=== PATIENT | female | born 1950 | race Caucasian/White ===

== ENCOUNTER 2019-03-08 07:27 | Day surgery (SDC) | payer MEDICARE, OTHER, SELFPAY ==
[2019-03-07 10:46] VITALS: BMI 37.1
[2019-03-08 08:42] VITALS: BP 135/88; PULSE 74; RESP 18; TEMP 36.2; O2SAT 99
[2019-03-08] MEDS: sodium chloride 0.9% 1,000 ML 30 ML (08:58)
--- NOTE | 2019-03-08 09:19 | PM.HPUD ---
H&P update H&P Update: DATE OF SURGERY/PROCEDURE: 03/08/19 DATE H&P PERFORMED: 03/04/19 H&P UPDATE INFORMATION: H&P completed within last 30 days and No changes to prior documentation PREOP DIAGNOSIS: Persistent GERD with history of obesity PLANNED PROCEDURE: Operation Date: 03/08/19 09:15 Proposed Procedures p EGD(Not Applicable) - David Avila MD Full H&P Perinent History: Medical/Surgical History: Medical History (Updated 03/04/19 @ 11:17 by David Avila MD) Chronic constipation (Acute) Depression with anxiety (Acute) Hyperlipidemia (Acute) Hypertension (Acute) Obesity (Acute) Family History: Family History (Updated 02/28/19 @ 14:55 by Chelsea Blancas RN) Father Diabetes Hypertension Mother Hypertension Dementia Family/Other Cancer colon Dementia aunt Denies family history of Anesthesia complication Bleeding disorder Social History: Social History Smoking and tobacco status: former smoker Quit status (tobacco): has quit using tobacco Second hand smoke exposure: No Alcohol intake: never Desire information about alcohol rehabilitation?: No Desire information about substance/drug rehabilitation?: No Adopted: No Caregiver/support person: Yes Lives independently: Yes Household members: spouse Housing: House Marital status: Highest education level completed: High School Graduate service: No Current occupational status: retired Current occupational exposures/hazards: No Pets and animals: Yes History of recent travel: No Leisure activites: exercise and games Sexually active: No Current gender identity: Female Ercia/Scientologist: None Financial difficulty paying for basics: Not Very Hard
--- NOTE | 2019-03-08 09:25 | ANES.PREANES ---
Pre-Anesthetic Assessment Pre-Anesthetic Assessment: Height/Weight: Height 1.68 m Weight 104.326 kg Temp Pulse Resp BP Pulse Ox 97.1 F L 74 18 135/88 99 03/08/19 08:42 03/08/19 08:42 03/08/19 08:42 03/08/19 08:42 03/08/19 08:42 Preop Diagnosis: Persistent GERD with history of obesity Proposed Procedure: Operation Date: 03/08/19 09:15 Proposed Procedures p EGD(Not Applicable) - David Avila MD Last intake: Intake Last Liquid Date 03/07/19 Last Liquid Time 23:00 Last Solid Date 03/07/19 Last Solid Time 23:00 Social: Social History: Alcohol (occasional) Exam: Pre-Anes Outpt Exam: alert, oriented x 3, clear to auscultation bilaterally and regular rate & rhythm Airway: Cervical ROM: WNL MP: 2 Dentition: Full History/ROS: Other Pulmonary: Pulmonary: None reported CV/HEM: CV/HEM: Angina (Stable), Arrythmia, CAD and HTN Comments: stentsX1- 2014 Dr. Serrato ([facility]) saw recently and everything checked out : : None reported Hepatic: Hepatic: None reported GI: GI: GERD (controlled) Metabolic: Metabolic: Hyperlipidemia and Thyroid (hypo) Musc/skel: Musc/skel: Lower Back Pain and OA/DJD Neuropsych: Neuropsych: Anxiety, Depression and TIA (2014 memory loss) Anesthetic Plan: ASA status: III Anesthesia: MAC Risk of > 500 ml blood loss (7ml/kg in children): No PFSH Anesthesia PFSH: Medical History (Updated 03/04/19 @ 11:17 by David Avila MD) Chronic constipation (Acute) Depression with anxiety (Acute) Hyperlipidemia (Acute) Hypertension (Acute) Obesity (Acute) Surgical History (Updated 03/04/19 @ 11:17 by David Avila MD) History of bilateral breast reduction surgery (Acute) History of coronary artery stent placement (Acute) History of lumbar laminectomy for spinal cord decompression (Acute) History of total knee replacement (Acute) Social History Smoking and tobacco status: former smoker Quit status (tobacco): has quit using tobacco Second hand smoke exposure: No Alcohol intake: never Desire information about alcohol rehabilitation?: No Desire information about substance/drug rehabilitation?: No Adopted: No Caregiver/support person: Yes Lives independently: Yes Household members: spouse Housing: House Marital status: Highest education level completed: High School Graduate service: No Current occupational status: retired Current occupational exposures/hazards: No Pets and animals: Yes History of recent travel: No Leisure activites: exercise and games Sexually active: No Current gender identity: Female Erica/Zoroastrianism: None Financial difficulty paying for basics: Not Very Hard Data Anesthesia Cardiac Studies: No Data to Display
[2019-03-08 10:10] VITALS: BP 130/62; PULSE 71; RESP 18; TEMP 36.1; O2SAT 99
--- NOTE | 2019-03-08 10:13 | ANE.PACU ---
 Inpatient post-anesthesia follow up: Airway intact: Yes Vital signs: Temperature 97.1 F Pulse Rate [Right Radial] 74 Respiratory Rate 18 Blood Pressure [Le ft Arm] 135/88 Pulse Oximetry 99 Oxygen Delivery Me thod Oxygen Flow Rate Fraction of Inspir ed Oxygen Hydration adequate: Yes Nausea and vomiting: No Pain level: 1 Mental status: Baseline
[2019-03-08 10:24] VITALS: BP 116/64; PULSE 65; RESP 18; O2SAT 99
[2019-03-09 06:57] LABS: H. Pylori / CLO Test Negative
== END 2019-03-08 10:38 | disposition home or self-care (01) ==
PROVIDERS: Family Provider Registered Nurse; PCP Registered Nurse; Visit Provider Surgery
PROC: 0DJ08ZZ Inspection of Upper Intestinal Tract, Via Natural or Artificial Opening Endoscopic (ICD-10-PCS; CPT 43235; principal; 2019-03-08 09:15)
DX: K21.9 Gastro-esophageal reflux disease without esophagitis (principal); E66.9 Obesity, unspecified; K29.70 Gastritis, unspecified, without bleeding; E78.5 Hyperlipidemia, unspecified; I10 Essential (primary) hypertension; Z80.0 Family history of malignant neoplasm of digestive organs; Z87.891 Personal history of nicotine dependence
CPT/HCPCS: 12345; 43239; 87077; 96365; J2704; J7030

== ENCOUNTER 2019-04-18 07:44 | Outpatient (CLI) | payer MEDICARE, OTHER, SELFPAY ==
--- NOTE | 2019-04-18 07:55 | US_ITS ---
WS: [id number] INDICATION: Right groin pain TECHNIQUE: Ultrasound right groin patient directed. FINDINGS: Ultrasound right groin patient directed area of concern. No evidence of drainable fluid col lection. There is a 1.2 x 0.5 x 1.2 cm slightly prominent lymph node right groin. No other cystic or solid mass. No other abnormalities. IMPRESSION: Slightly prominent lymph node right groin with preserved fatty hilum. No other findings in right groin.
== END 2019-04-18 07:45 | disposition home or self-care (01) ==
LOC: US 07:46
PROVIDERS: Family Provider Registered Nurse; PCP Registered Nurse; Visit Provider Registered Nurse
DX: R10.31 Right lower quadrant pain (principal)
CPT/HCPCS: 76882

== ENCOUNTER 2019-09-18 15:54 | Outpatient (CLI) | payer MEDICARE, OTHER, SELFPAY ==
[2019-09-18 16:42] LABS: Basophils # 0.1 10^3/uL (0.0-0.1); Basophils % 0.7 %; Eosinophils # 0.2 10^3/uL (0.0-0.8); Eosinophils % 1.8 %; Hematocrit 42.9 % (37.0-47.0); Hemoglobin 14.3 g/dL (11.5-15.3); Lymphocytes # 1.3 10^3/uL (0.8-4.8); Lymphocytes % 15.6 %; Mean Corpuscular HGB Conc 33.3 g/dL (30.0-36.0); Mean Corpuscular Hemoglobin 30.2 pg (28.0-34.0); Mean Corpuscular Volume 90.5 fL (81-99); Mean Platelet Volume 9.3 fL (7.4-10.4); Monocytes # 0.6 10^3/uL (0.2-0.9); Monocytes % 7.1 %; Neutrophils # 6.38 10^3/uL (1.8-7.7); Neutrophils % 74.6 %; Nucleated Red Blood Cells % 0 %; Platelet Count 292 10^3/cmm (130-400); Red Blood Count 4.74 10^6/uL (4.1-5.3); Red Cell Distribution Width 12.2 % (12.1-15.1); White Blood Count 8.6 10^3/uL (4.0-10.0)
[2019-09-18 16:48] LABS: INR 1.02 (0.8-1.2)
[2019-09-18 16:51] LABS: Alanine Aminotransferase 22 U/L (0-33); Albumin Level 4.5 g/dL (3.5-5.2); Alkaline Phosphatase 123 IU/L (35-105); Aspartate Amino Transferase 19 U/L (0-32); Globulin 2.7 g/dL (1.3-4.6); Total Bilirubin 0.4 mg/dL (0.15-1.2); Total Protein 7.2 g/dL (6.6-8.7)
[2019-09-18 17:15] LABS: Alanine Aminotransferase 21 U/L (0-33); Albumin Level 4.5 g/dL (3.5-5.2); Alkaline Phosphatase 122 IU/L (35-105); Anion Gap 15.4 (5-19); Aspartate Amino Transferase 19 U/L (0-32); Blood Urea Nitrogen 12 mg/dL (8-23); Carbon Dioxide 26 mmol/L (22-29); Chloride 97 mmol/L (98-107); Ferritin 58 ng/mL (15-150); Globulin 2.8 g/dL (1.3-4.6); Glomerular Filtration Rate 62.5 mL/min (90-130); Glucose 126 mg/dL (65-115); Iron 81 ug/dL (37-145); Osmolality Calculated 276 mOsm/kg (285-295); Percent Saturation 24.1 % (20-50); Phosphorus 3.7 mg/dL (2.5-4.5); Potassium 4.4 mmol/L (3.5-5.1); Sodium 134 mmol/L (136-145); Thyroid Stimulating Hormone 0.25 uIU/mL (0.27-4.20); Total Bilirubin 0.4 mg/dL (0.15-1.2); Total Iron Binding Capacity 335 mcg/dl; Total Protein 7.3 g/dL (6.6-8.7); Unsaturated Iron Binding 254 ug/dL (112-347); Vitamin B12 1313 pg/mL (232-1245)
[2019-09-18 17:16] LABS: Calcium 9.3 mg/dL (8.5-10.5); Parathyroid Hormone 38.6 pg/mL (15-65)
[2019-09-18 19:01] LABS: Estmated Average Glucose 134; Hemoglobin A1C 6.3 % (4.0-6.0)
[2019-09-18 20:53] LABS: Chol HDL Ratio 2.12 mg/dL (0.0-4.40); Cholesterol 189 mg/dL (0-200); HDL Cholesterol 89 mg/dL (60-100); LDL Cholesterol Calculated 85 mg/dL (50-129); LDL HDL Ratio 0.96 RATIO (0.00-3.22); Triglycerides 74 mg/dL (0-150)
== END 2019-09-18 15:55 | disposition home or self-care (01) ==
LOC: LAB 15:59
PROVIDERS: PCP Registered Nurse; Visit Provider Surgery
DX: E66.9 Obesity, unspecified (principal); K29.70 Gastritis, unspecified, without bleeding; E11.9 Type 2 diabetes mellitus without complications
CPT/HCPCS: 80053; 80061; 80076; 82310; 82607; 82728; 82746; 83036; 83540; 83550; 83735; 83970; 84100; 84443; 85025; 85610

== ENCOUNTER → 2019-10-13 10:54 | Outpatient (BNVA) | payer MEDICARE, OTHER, SELFPAY | PROVIDERS: PCP Registered Nurse; Visit Provider Internal Medicine | DX: Z20.828 Contact with and (suspected) exposure to other viral communicable diseases (principal); E66.9 Obesity, unspecified | CPT/HCPCS: 87635 ==

== ENCOUNTER 2019-10-17 08:53 | Inpatient (IN) | payer MEDICARE, OTHER, SELFPAY ==
[2019-10-13 10:43] VITALS: BMI 37.1
--- NOTE | 2019-10-13 11:14 | ECG_ITS ---
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 Measurements Intervals [place] Rate: 73 P: 43 [place]: 161 QRS: -8 QRSD: 82 T: 13 QT: 353 QTc: 390 Interpretive Statements SINUS RHYTHM LOW QRS VOLTAGE IN PRECORDIAL LEADS [QRS DEFLECTION < 1.0 mV IN CHEST LEADS] No previous ECG available for comparison Electronically Signed On 10-14-2019 19:31:23 CDT by Girma Danielson M.D. [id number]
--- NOTE | 2019-10-13 11:56 | P.ANESASSM_ITS ---
Pre-Anesthetic Assessment Pre-Anesthetic Assessment: Height/Weight: Height 1.68 m Weight 104.326 kg Preop Diagnosis: Persistent GERD with history of obesity Proposed Procedure: Operation Date: 10/17/19 10:15 Proposed Procedures p Laparoscopic Gastric Sleeve w/ EGD [id number] 54555 E66.9(Not Applicable) - David Avila MD s EGD(Not Applicable) - David Avila MD Was Beta Rhoda taken within 24 hours: N/A Social: Social History: No alcohol and No tobacco Exam: Pre-Anes Outpt Exam: alert, oriented x 3, clear to auscultation bilaterally and regular rate & rhythm Airway: Submandibular: WNL Cervical ROM: WNL MP: 2 Dentition: Full Pulmonary: Pulmonary: Asthma CV/HEM: CV/HEM: HTN, [place] and Murmur : : None reported Hepatic: Hepatic: None reported GI: GI: None reported Metabolic: Metabolic: Morbid obesity Musc/skel: Musc/skel: None reported Neuropsych: Neuropsych: Anxiety Anesthetic Plan: ASA status: 3 Anesthesia: General Risk of > 500 ml blood loss (7ml/kg in children): No PFSH Anesthesia PFSH: Medical History Chronic constipation Depression with anxiety Gastritis GERD (gastroesophageal reflux disease) History of mammography, screening (~2017) History of Papanicolaou smear of cervix (~2017) Hyperlipidemia Hypertension Hypertension, benign Hyponatremia Hypothyroidism IBS (irritable bowel syndrome) Memory loss Obesity Osteoarthritis Peripheral neuropathy Surgical History History of 2 sections History of bilateral breast reduction surgery History of bladder suspension procedure History of carpal tunnel release of both wrists History of colonoscopy (~2013) History of coronary artery stent placement History of lumbar laminectomy for spinal cord decompression History of total knee replacement Family History Father Diabetes Hypertension Mother Hypertension Dementia Family/Other Cancer colon Dementia aunt Denies family history of Anesthesia complication Bleeding disorder Social History Smoking and tobacco status: former smoker Quit status (tobacco): has quit using tobacco Second hand smoke exposure: No Alcohol intake: never Desire information about alcohol rehabilitation?: No Desire information about substance/drug rehabilitation?: No Adopted: No Caregiver/support person: Yes Lives independently: Yes Household members: spouse Housing: House Marital status: Highest education level completed: High School Graduate service: No Current occupational status: retired Current occupational exposures/hazards: No Pets and animals: Yes History of recent travel: No Leisure activites: exercise and games Sexually active: No Current gender identity: Female Erica/Hoahaoism: None Financial difficulty paying for basics: Not Very Hard Data Anesthesia Cardiac Studies: No Data to Display
[2019-10-17 09:13] VITALS: BP 173/85; PULSE 78; RESP 18; TEMP 36.2; O2SAT 99
[2019-10-17] MEDS: sodium chloride 0.9% 1,000 ML 999 ML IV (09:28)
[2019-10-17] MEDS: scopolamine 1.5 Patch 1 PATCH TRANSDERMA (09:29)
[2019-10-17] MEDS: heparin 5,000 unit/mL INJ 1 mL 5000 UNIT SUBCUT (09:29)
[2019-10-17] MEDS: pantoprazole 40 mg SDV IVP (09:37)
--- NOTE | 2019-10-17 10:11 | P.ANESUD_ITS ---
Pre-Anesthetic Update Pre-Anesthetic Assessment: Date of Surgery/Procedure: 10/17/19 Preop Sandra gnosis: Persistent GERD with history of obesity Proposed Procedure: Operation Date: 10/17/19 10:55 Proposed Procedures p Laparoscopic Gastric Sleeve w/ EGD [id number] E66.9(Not Applicable) - David Avila MD s EGD(Not Applicable) - David Avila MD Changes from Pre-Anesthetic Assessment: Patient has been taking valtrex for genital herpes lesion. Surgeon informed Last Intake: Intake Last Liquid Date 10/16/19 Last Liquid Time 23:55 Last Solid Date 10/16/19 Last Solid Time 18:00 Vitals: Temperature 97.2 F L 10/17/19 09:13 Temperature Source Temporal Artery S can 10/17/19 09:13 Pulse Rate 78 10/17/19 09:13 Respiratory Rate 18 10/17/19 09:13 Blood Pressure 173/85 10/17/19 09:13 Blood Pressure Nichelle n 114 10/17/19 09:13 Pulse Oximetry 99 10/17/19 09:13 Oxygen Delivery Me thod 10/17/19 09:13 Exam: Pre-Anes Outpt Exam: alert, oriented x 3, clear to auscultation bilaterally and regular rate & rhythm Cardiac Studies: No Data to Display
--- NOTE | 2019-10-17 10:22 | PC.CHAP ---
Pastoral Care Encounter/Spiritual Assessment Type of Contact [] Declined head sawyer automatic visit [] Patient/Family/Request visit [] Outpatient visit [x] Follow-up visit [] Physician referral [] Code/Alert [] Routine visit [] Staff referral [] Actively dying [] Patient sleeping [] Family support [] [] Out of room [] Palliative care [] [] Receiving care in room [] Pre-surgical visit [] Trauma [] Long length of stay [] ICU visit [x] Other: in surgery Relational/Emotional Strength [] Patient feels connected with others/family/visitors/staff [] Distress [] Loneliness/isolation [] Abandonment Spirituality of Patient [] Person of Erica [] Attends Spiritism of their Erica [] Believes in Prayer [] Reads Bible or Druze materials [] There are Spiritual issues to be addressed Holter Scanning Technician Interventions [] Prayer [] Active listening [] Non-anxious presence [] Spiritual/emotional support [] Crisis/trauma care [] Spiritual counseling [] Bereavement support [] Provided bereavement packet [] Provided Bible/devotional materials [] Provided toy/stuffed animal, coloring book to patient or family member [] Provided Communion [] Anointing/[place] [] Salvation [] Completed spiritual assessment [] Other: Impact on Illness or Injury [] Angry [] Fearful [] Anxious [] Often cries [] Exhaustion [] Unable to work [] Unable to attend hinduism [] Unable to walk/stand [] Unable to read [] Unable to drive [] Unable to eat/drink [] Unable to sleep [] Unable to be with family [] Patient intubated [] Other: Summary in surgery Time spent with patient 5 mins
--- NOTE | 2019-10-17 11:04 | P.HPUD_ITS ---
Surgery/Procedure H&P Update DATE OF PROCEDURE: October 17, 2019 DATE H&P PERFORMED: 09/18/19 H&P UPDATE INFORMATION: I have reviewed H&P completed within last 30 days, I have examined patient prior to procedure (In the presence of female racking technician Mishel JOHNSON what appears to be that the patient has herpes at the external genitalia) and Changes to prior documentation as noted here CHANGES TO PREVIOUS DOCUMENTATION: Due to the fact that the patient is having recovering infection from herpes at her external genitalia and has been placed on antiviral medication, my concern on insertion of a Zhang catheter that can create a ascending infection moreover patient can have relatively immunocompromise status with surgical trauma and can go into acute viremia, which would require longer hospitalization and potential increase the risk of complications. I will postpone the surgery and I did discuss with the patient and her spouse and both agreed and I will defer to Ms. Arabella Winkler patient's primary care provider to clear patient prior to surgery, meanwhile will continue protein diet for another week and have the patient scheduled this coming Wednesday, hopefully by that time she will be appropriate for elective surgery. PREOP DIAGNOSIS: Persistent GERD with history of obesity PRIMARY INDICATION FOR PROCEDURE: The same PLANNED PROCEDURE: Operation Date: 10/17/19 10:55 Proposed Procedures p Laparoscopic Gastric Sleeve w/ EGD [id number] 20450 E66.9(Not Applicable) - David Avila MD s EGD(Not Applicable) - David Avila MD
--- NOTE | 2019-10-17 11:48 | PC.NURSE ---
Pts surgery cancelled. Dr Avila spoke with pt and will get her rescheduled for next week
== END 2019-10-17 14:57 | disposition home or self-care (01) | DRG 641 ==
LOC: MEDSURG 08:54
PROVIDERS: Admitting Provider Surgery; PCP Registered Nurse; Visit Provider Surgery
PROC: 0DB64Z3 Excision of Stomach, Percutaneous Endoscopic Approach, Vertical (ICD-10-PCS; CPT 43775; principal; 2019-10-17 10:45)
PROC: 0DJ08ZZ Inspection of Upper Intestinal Tract, Via Natural or Artificial Opening Endoscopic (ICD-10-PCS; CPT 43235; 2019-10-17 10:45)
DX: E66.09 Other obesity due to excess calories (principal); Z53.8 Procedure and treatment not carried out for other reasons; Z68.37 Body mass index [BMI] 37.0-37.9, adult; E88.81 Metabolic syndrome and other insulin resistance; Z79.82 Long term (current) use of aspirin; K59.09 Other constipation; F41.8 Other specified anxiety disorders; K21.9 Gastro-esophageal reflux disease without esophagitis; E78.5 Hyperlipidemia, unspecified; I10 Essential (primary) hypertension; E03.9 Hypothyroidism, unspecified; K58.9 Irritable bowel syndrome, unspecified; M19.90 Unspecified osteoarthritis, unspecified site; G62.9 Polyneuropathy, unspecified; I25.10 Atherosclerotic heart disease of native coronary artery without angina pectoris; Z95.5 Presence of coronary angioplasty implant and graft; Z98.1 Arthrodesis status; Z96.659 Presence of unspecified artificial knee joint; Z87.891 Personal history of nicotine dependence; A60.00 Herpesviral infection of urogenital system, unspecified
CPT/HCPCS: 12345; 93005; 96365; 96372; 96374; C9113; J1644; J7030

== ENCOUNTER 2019-10-23 05:35 | Inpatient (IN) | payer MEDICARE, OTHER, SELFPAY ==
[2019-10-20 14:28] VITALS: BMI 35.5
[2019-10-23] VITALS (26 sets, daily range): BP systolic 111–166; BP diastolic 53–92; PULSE 58–99; RESP 13–20; TEMP 34.6–37.5; O2SAT 95–100
--- NOTE | 2019-10-23 05:58 | W.PM.OPSFHP ---
Same Day Surgery H&P Indication for Procedure/HPI DATE OF PROCEDURE: October 23, 2019 CHIEF COMPLAINT/INDICATIONFOR SURGICAL PROCEDURE: Obesity PREOP DIAGNOSIS: Obesity PLANNED PROCEDRUE: Operation Date: 10/23/19 07:00 Proposed Procedures p Laparoscopic Gastric Sleeve w/ EGD [id number] 11809 R66.9(Not Applicable) - David Avila MD s EGD(Not Applicable) - David Avila MD This is a pleasant 69 years old female patient with history of obesity and associated multiple medical comorbidities. Patient undergone appropriate supervised medical weight loss met all the criteria for laparoscopic vertical sleeve gastrectomy. Patient was scheduled to undergo her surgery last week yet she was recovering from an episode of herpes which had involved her groin and pubic region thus the case was postponed to recover completely and she got cleared last Wednesday from Ms. Winkler her primary care provider to proceed with surgery accordingly. I elected to keep the patient on liquid protein diet and she comes today for her scheduled surgery. Patient denies any complaints. ROS All systems have been reviewed negative except as per the above or per problem list Medications/Allergies* Home Medications Medication Instructions Recorded Confirmed Type bupropion HCl 150 mg tablet,12 hr 100 mg PO BID 02/28/19 10/20/19 History sustained-release docusate sodium 100 mg capsule 100 mg PO BID 02/28/19 10/20/19 History fluticasone propionate 50 2 spray INTRANASAL DAILY ml 02/28/19 10/20/19 History mcg/actuation nasal spray,suspension levothyroxine 125 mcg capsule 125 mcg PO DAILY 02/28/19 10/20/19 History lisinopril 20 mg tablet 20 mg PO DAILY tab 02/28/19 10/20/19 History montelukast 10 mg tablet 10 mg PO DAILY 02/28/19 10/20/19 History miaahsnjqcwp-Lo-dhvv-minerals 1 tab PO DAILY tab 02/28/19 10/20/19 History aspirin [Aspir-81] 81 mg PO DAILY 03/07/19 10/20/19 History vitamin B complex 1 cap PO DAILY 03/07/19 10/20/19 History alprazolam 0.25 mg PO TID PRN 10/13/19 10/20/19 History valacyclovir 500 mg PO DAILY 10/13/19 10/20/19 History albuterol sulfate 2 puff INHALATION QID PRN 10/17/19 10/20/19 History biotin 1 mg PO DAILY 10/17/19 10/20/19 History cetirizine [Zyrtec] 10 mg PO DAILY 10/17/19 10/20/19 History magnesium citrate 500 mg PO DAILY 10/17/19 10/20/19 History pseudoephedrine HCl [Sudogest] 30 mg PO QID PRN 10/17/19 10/20/19 History nitroglycerin 0.4 mg SUBLINGUAL PRN PRN 10/20/19 10/20/19 History Allergies/Adverse Reactions Allergy/AdvReac Type Severity Reaction Status Date / Time sulfamethoxazole Allergy Mild Unknown Verified 10/23/19 06:00 [From Bactrim] trimethoprim [From Bactrim] Allergy Mild Unknown Verified 10/23/19 06:00 Lmchles-Hto-Qam Reductase Allergy Unknown Verified 10/23/19 06:00 Inhibitor topiramate [From Topamax] AdvReac ADR-Agitate Verified 10/23/19 06:00 d Pertinent History/Comorbid Conditions* Obesity and associated multiple medical comorbidities including GERD, hyperlipidemia, hypertension, hypothyroidism, irritable bowel syndrome, memory loss, and peripheral neuropathy,inaddition to depression with an anxiety. Medical History (Updated 09/18/19 @ 15:19 by David Avila MD) Chronic constipation Depression with anxiety Gastritis GERD (gastroesophageal reflux disease) History of mammography, screening (~2017) History of Papanicolaou smear of cervix (~2017) Hyperlipidemia Hypertension Hypertension, benign Hyponatremia Hypothyroidism IBS (irritable bowel syndrome) Memory loss Obesity Osteoarthritis Peripheral neuropathy Surgical History (Updated 04/06/19 @ 06:51 by David vAila MD) History of 2 sections History of bilateral breast reduction surgery History of bladder suspension procedure History of carpal tunnel release of both wrists History of colonoscopy (~2013) History of coronary artery stent placement History of lumbar laminectomy for spinal cord decompression History of total knee replacement Family History (Updated 02/28/19 @ 14:55 by Chelsea Blancas RN) Diabetes Father Dementia Mother Family/Other aunt Cancer Family/Other colon Hypertension Father Mother Denies family history of Anesthesia complication Bleeding disorder Social History Smoking and tobacco status: former smoker Quit status (tobacco): has quit using tobacco Second hand smoke exposure: No Alcohol intake: never Desire information about alcohol rehabilitation?: No Desire information about substance/drug rehabilitation?: No Adopted: No Caregiver/support person: Yes Lives independently: Yes Household members: spouse Housing: House Marital status: Highest education level completed: High School Graduate service: No Current occupational status: retired Current occupational exposures/hazards: No Pets and animals: Yes History of recent travel: No Leisure activites: exercise and games Sexually active: No Current gender identity: Female Erica/Mu-Ism: None Financial difficulty paying for basics: Not Very Hard Pertinent Exam Findings alert, oriented x 3, clear to auscultation bilaterally, regular rate & rhythm and procedure specific exam findings (Abdominal examination nontender nondistended soft no signs of peritonitis. Lower midline scar) Recommendations Other (Laparoscopic vertical sleeve gastrectomy with intraoperative EGD that would require inpatient admission) Other Plans: Informed consent per chart Coding Level of Care Code Acute Healthcare Economics Consultant for Ninoska Cabello
[2019-10-23] MEDS: sodium chloride 0.9% 1,000 ML 999 ML IV (06:05)
[2019-10-23] MEDS: scopolamine 1.5 Patch 1 PATCH TRANSDERMA (06:06)
[2019-10-23] MEDS: heparin 5,000 unit/mL INJ 1 mL 5000 UNIT SUBCUT ×2 (06:08→21:51)
[2019-10-23] MEDS: pantoprazole 40 mg SDV IVP (06:15)
--- NOTE | 2019-10-23 06:32 | P.ANESUD_ITS ---
Pre-Anesthetic Update Pre-Anesthetic Assessment: Date of Surgery/Procedure: 10/23/19 Preop Sandra gnosis: Obesity Proposed Procedure: Operation Date: 10/23/19 07:00 Proposed Procedures p Laparoscopic Gastric Sleeve w/ EGD [id number] 83990 R66.9(Not Applicable) - David Avila MD s EGD(Not Applicable) - David Avila MD Any changes to Pre-Anesthetic Assessment?: Yes Changes from Pre-Anesthetic Assessment: Cleared by primary doc for her herpes outbreak Last Intake: Intake Last Liquid Date 10/22/19 Last Liquid Time 23:55 Last Solid Date 10/22/19 Last Solid Time 19:00 Vitals: Temperature 97.5 F L 10/23/19 05:53 Temperature Source Temporal Artery S can 10/23/19 05:53 Pulse Rate 87 10/23/19 05:53 Respiratory Rate 20 H 10/23/19 05:53 Blood Pressure 130/71 10/23/19 05:53 Blood Pressure Nichelle n 90 10/23/19 05:53 Pulse Oximetry 96 10/23/19 05:53 Oxygen Delivery Me thod 10/23/19 05:53 Exam: Pre-Anes Outpt Exam: alert, oriented x 3, clear to auscultation bilaterally and regular rate & rhythm Cardiac Studies: No Data to Display
[2019-10-23] MEDS: lidocaine 2% INJ 20 mL INJECTION (07:29)
--- NOTE | 2019-10-23 08:53 | SUR.OPER ---
0752- family updated of surgical status. 0852- attempted to contact family to update of surgical status
--- NOTE | 2019-10-23 09:26 | PM.OP ---
Operative Report Date of procedure: October 23, 2019 Pre-op Diagnosis: Obesity Post-op diagnosis: same Procedure Done: Laparoscopic vertical sleeve gastrectomy and intraoperative EGD Specimens removed/disposition: Subtotal gastrectomy status post gastric sleeve sutures marked proximal Surgeon: David Avila Geological Specialist: Emily Pollack Circulating nurse Mishel Anesthesia: General (warehouse logistics manager Jerry) Estimated blood loss (mL): 10 IV fluids (mL): 1,000 Urine output (mL): 200 Complications: No immediate complication Findings: Surgical intact conduit versus laparoscopic vertical sleeve gastrectomy and intraoperative endoscopy without evidence of intraoperative leak Condition: stable Disposition: floor Brief History: This is a pleasant 69 years old female patient with history of obesity and associated multiple medical comorbidities. Patient undergone supervised medical weight loss and she met the criteria for laparoscopic vertical sleeve gastrectomy. Informed consent per chart Procedure: Patient was identified in holding area , appropriate pharmacologic DVT prophylaxis was given and preoperative IV fluid hydration, patient was then taken to the operating room where the patient was placed in supine position, intubated by anesthesia prophylactic antibiotics were given per protocol,Time-out was done verifying the patient's name/date of /planned procedure and destination after the procedure, all were in agreement. SCDs confirmed to be functioning, and beta sammi protocol was confirmed. A Zhang catheter was inserted by the circulating nurse revealing clear urine. A foot board was applied to secure the patient while the patient is placed in reversed Trendelenburg, all pressure points were padded, and the patient was appropriately secured to the table, anesthesia was asked to rotate the table back and forth to verify that the patient is appropriately secured, and that was the case. The abdomen was prepped and draped under the usual sterile technique. A 1 cm transverse incision was made with a 15 blade scalpel approximately 15 cm below the xiphoid process and 3 cm left of the midline. A 12 mm optical trocar port was placed under direct vision into the peritoneal cavity without evidence of injury to peritoneal structures upon entry. The peritoneal cavity was insufflated with carbon dioxide gas up to 15 mmHg pressure. A 45? angle laparoscopy was placed through the port into the peritoneal cavity there was no significant blood, fluid, or evidence of intra-abdominal injury under direct visualization a 5 mm trocar port was placed in the left lateral flank and 12 mm trocar port was placed in the right epigastric region and a fourth 5 mm trocar port was placed in the mid epigastric region more caudad than and medial to the previous port. A subxiphoid stab incision was made and dissection into the peritoneum with 5 mm obturator. A grasping laparoscopic clamp was inserted through here and clamped to the right miri of the diaphragm to elevate The liver for the entirety of the case. Patient was then placed in the reversed Trendelenburg Following this, the greater curvature of the stomach was freed from the omentum using the harmonic scalpel. This division included the short gastric vessels proximally. This dissection was carried from approximately 4 cm-6 cm proximal to the pylorus and extending all the way up to the angle of Hiss. During this process the posterior aspect of the stomach was mobilized from the underlying peritoneum. With the greater curvature of the stomach exposed from within 4-6 cm of the pylorus and extending to the angle of Hiss, which also included the posterior stomach, a 40 Japanese bougie passed under direct vision through the esophagus, stomach, and into the first part of the duodenum by the anesthesia provider and under direct guidance and visualization by me, via the laparoscopy. Using the bougie 40 Japanese aligned along the lesser curvature of the stomach as a template the laparoscopic vertical gastric sleeve was performed starting from a point about 5 cm from the pylorus along the greater curvature. Using the Hitchcock Laparoscopic FRANCOIS linear cutting stapler with Seam guarded enforcement, a series of nilson were used to transect the stomach in a vertical fashion along the left side of the template. This was carried all the way to the angle of Hiss.Green loads were used for all stapler loads with buttress material. The staple line along the remaining tubularized stomach was tested for leaks and bleeding under direct vision as the 40 Japanese bougie was exchanged (and there was no evidence of blood on the tip of the bougie) by a standard diagnostic EGD via the mouth by my self after I scrubbed out and insufflation and the staple line submerged under water,meanwhile a clamp was applied distally onto the end of the tubularized stomach to allow insufflation test for leak. There was no evidence of leak .There was adequate hemostasis along the staple line. EGD was taken out at this point after deflation of the tubularized stomach. I scrubbed back in, multiple 5 mm clip campus administrative assistant were applied onto the staple line for minor oozing The transected partial stomach, which included the greater curvature, was removed from the peritoneum through the first 12 mm trocar site. Prior to closure of the fascia. An interrupted 0 Vicryl suture on a granny needle suture passer was used to close the right epigastric and the other 12 mm trocar left of the midline fascial defects under direct visualization. The other trocars were removed under direct vision and no evidence of bleeding was identified. The pneumoperitoneum was decompressed. All skin incisions were irrigated with saline, then closed with nilson, followed by application of sterile dressings. The patient was extubated and taken to the recovery room with normal vital signs. I was present for the whole entire procedure.
--- NOTE | 2019-10-23 09:54 | SUR.PHASEI ---
PT AWAKE ALERT ON RA SATS 100% PT DENES PAIN AND NAUSEA, VSS
--- NOTE | 2019-10-23 10:01 | ANE.PACU2 ---
Inpatient post-anesthesia follow up: Airway intact: Yes Vital signs: Temperature 97 F Pulse Rate 65 Respiratory Rate 17 Blood Pressure 155/65 Pulse Oximetry 100 Oxygen Delivery Me thod Room Air Oxygen Flow Rate 6 Fraction of Inspir ed Oxygen Hydration adequate: Yes Nausea and vomiting: No Pain level: 2 Mental status: Baseline (arousable)
--- NOTE | 2019-10-23 10:07 | SUR.PHASEI ---
PT RESTING QUIETLY, AWAKES EASILY , PT DENIES NAUSEA AND NO S/S OF PAIN ABD SOFT WITH 6 SITES D/I PARKS TO DD SMALL AMT OF YELLOW URINE NOTED TO TUBING AND BAG. BILAT SCDS ON , IV PATENT . WAITNG TO GIVE REPORT TO FLOOR DR PRICE AT BEDSIDE.
--- NOTE | 2019-10-23 10:16 | SUR.PHASEI ---
PT IN HOLDING WAITING TO GIVE REPORT TO FLOOR NURSE.
--- NOTE | 2019-10-23 10:47 | SUR.PHASEI ---
1040 PT TO FLOOR PER CART PT MOVED TO BED WITH SLIDEBOARD AND 3 NURSES, PT AWAKE ALERT NAUSEATED AFTER TRANSFER, IV TO LT AC PATENT ABD SOFT, SITES X6 D/I, PT SHIVERING WARM BLANKETS X 2 TO PT AND PT ROOM TEMP INCREASED, PT HOB AT 30 DEGREES, PT BP 145/70, HR 67, RESP 18 SATS 99% ON RA. PT HAS NO EMESIS AND NAUSEA IS BETTER, PT NOW C/O OF ABD PAIN.
[2019-10-23 11:12] LABS: Glucose Point of Care 138 mg/dL (70-110)
[2019-10-23] MEDS: lactated ringers 1,000 ML 150 ML IV ×2 (11:21→17:02)
[2019-10-23 17:04] LABS: Glucose Point of Care 140 mg/dL (70-110)
[2019-10-23 21:28] LABS: Glucose Point of Care 132 mg/dL (70-110)
[2019-10-24] VITALS (8 sets, daily range): BP systolic 124–175; BP diastolic 67–80; PULSE 71–86; RESP 12–20; TEMP 36.6–37.3; O2SAT 94–99
[2019-10-24] MEDS: morphine 4 mg/mL SDV 1 mL 2 MG IVP ×2 (02:49→08:32)
[2019-10-24] MEDS: lactated ringers 1,000 ML 150 ML IV (02:53)
[2019-10-24 05:52] LABS: Hematocrit 36.7 % (37.0-47.0); Hemoglobin 12.7 g/dL (11.5-15.3)
--- NOTE | 2019-10-24 05:57 | PM.PN ---
Subjective Subjective: Interval history: Overall patient doing well and no acute events overnight except that the patient vomited once dark brown material. Had good urine output about 900 mL. Lab work still pending Vitals/I&O/Wt Last Vital Signs Temp 97.8 F 10/24/19 04:00 Pulse 81 10/24/19 04:00 Resp 18 10/24/19 04:00 BP 158/76 10/24/19 04:00 Pulse Ox 94 10/24/19 04:00 10/23/19 10/23/19 10/24/19 14:59 22:59 06:59 Intake Total 2300 / 2300 852.5 / 3152.5 1000 / 4152.5 Output Total 580 / 580 300 / 880 900 / 1780 Balance 1720 / 1720 552.5 / 2272.5 100 / 2372.5 Physical Exam Narrative: EXAM NARRATIVE: Patient is conscious alert oriented X3 BMI 35.5 Head and neck examination PERRLA no masses no cervical lymphadenopathy no jaundice Cardiac examination audible S1-S2 no murmurs no gallops no arrhythmias Chest is clear bilateral,abscence of Rhonchi or wheezes,no surgical emphysema Abdomen nontender except mildly at the incision site nondistended soft no organomegaly guarding or rigidity/no signs of peritonitis Extremities no cyanosis no clubbing no edema Urinary Catheter Management^: Zhang: Cath Placed During This Visit: yes Reason for Continuing Indwelling Catheter: Perioperative Use in Selected Surgeries Urinary Catheter Date of Insertion: 10/23/19 Urinary Catheter Time of Insertion: 07:20 Data : 10/24/19 05:40 10/24/19 05:40 A&P Assessment and plan (1) S/P laparoscopic sleeve gastrectomy: 5:45 AM : Patient undergone uneventful laparoscopic vertical sleeve gastrectomy 10/23/2019 DC Zhang catheter We will follow on upper GI study once that is cleared, will start the patient on phase 1 of her nutrition. We will follow on a.m. labs. Encourage ambulation Incentive spirometer every hour Assurance and education All questions have been answered and all concerns have been addressed to patient's satisfaction. Status: Acute Attestations Medical Necessity Statement*: Medical necessity care is expected to cross 2 midnights Time Spent in Patient Care: (>than 50% of time spent in counselling and/or direct pt care on unit). Coding Level of Care Code Acute Stocking And Box Shop Supervisor for Chg Fwd Diagnoses S/P laparoscopic sleeve gastrectomy Z98.84
[2019-10-24] MEDS: heparin 5,000 unit/mL INJ 1 mL 5000 UNIT SUBCUT ×3 (06:03→22:21)
[2019-10-24 06:14] LABS: Anion Gap 13.3 (5-19); Blood Urea Nitrogen 7 mg/dL (8-23); Calcium 8.7 mg/dL (8.5-10.5); Carbon Dioxide 24 mmol/L (22-29); Chloride 98 mmol/L (98-107); Glomerular Filtration Rate 71.5 mL/min (90-130); Glucose 139 mg/dL (65-115); Osmolality Calculated 270 mOsm/kg (285-295); Potassium 4.3 mmol/L (3.5-5.1); Sodium 131 mmol/L (136-145)
[2019-10-24 06:49] LABS: Glucose Point of Care 110 mg/dL (70-110)
--- NOTE | 2019-10-24 07:20 | ANE.PACU2 ---
Inpatient post-anesthesia follow up: Airway intact: Yes Vital signs: Temperature 97.8 F Pulse Rate 81 Respiratory Rate 18 Blood Pressure 158/76 Pulse Oximetry 94 Oxygen Delivery Me thod Room Air Oxygen Flow Rate 0 Fraction of Inspir ed Oxygen Hydration adequate: Yes Nausea and vomiting: No Pain level: 5 Mental status: Baseline Additional Comments: Patient had one episode of emesis, complaining of headache currently
--- NOTE | 2019-10-24 08:00 | FL_ITS ---
WS: [id number] Limited upper GI examination. HISTORY: Status post gastric sleeve. Fluoroscopy time: 1.0 minutes. Patient drank the thin mixture without difficulty. Normal appearance of the stomach. The gastric slee ve is patent with contrast extending readily through the duodenal C-loop. There is no extravasation of contrast or significant edema. FL/FL upper GI series [id number] IMPRESSION: Normal appearance of the gastric sleeve. No extravasation of contrast.
[2019-10-24] MEDS: ondansetron 2 mg/ML SDV 2 mL 4 MG IVP ×2 (08:33→20:55)
[2019-10-24] MEDS: sodium chloride 0.9% 1,000 ML 100 ML IV ×2 (08:35→16:39)
--- NOTE | 2019-10-24 08:37 | PC.NURSE ---
Patient off unit taken via wheelchair to upper GI study
--- NOTE | 2019-10-24 10:06 | PC.NURSE ---
Zhang catheter was removed by night nurse at 0630, per shift report. typewriter ribbon winder charted catheter removal.
[2019-10-24 10:40] LABS: Glucose Point of Care 113 mg/dL (70-110)
--- NOTE | 2019-10-24 10:56 | PC.CHAP ---
Pastoral Care Encounter/Spiritual Assessment Type of Contact [] Declined senior wind energy consultant visit [] Patient/Family/Request visit [] Outpatient visit [] Follow-up visit [] Physician referral [] Code/Alert [x] Routine visit [] Staff referral [] Actively dying [] Patient sleeping [] Family support [] [] Out of room [] Palliative care [] [] Receiving care in room [] Pre-surgical visit [] Trauma [] Long length of stay [] ICU visit [] Other: Relational/Emotional Strength [x] Patient feels connected with others/family/visitors/staff [] Distress [] Loneliness/isolation [] Abandonment Spirituality of Patient [x] Person of Erica [] Attends Faith of their Erica [x] Believes in Prayer [] Reads Bible or Yazidism materials [] There are Spiritual issues to be addressed Strawhat Blocking Operator Interventions [x] Prayer [x] Active listening [x] Non-anxious presence [x] Spiritual/emotional support [] Crisis/trauma care [] Spiritual counseling [] Bereavement support [] Provided bereavement packet [] Provided Bible/devotional materials [] Provided toy/stuffed animal, coloring book to patient or family member [] Provided Communion [] Anointing/[place] [] Salvation [x] Completed spiritual assessment [] Other: Impact on Illness or Injury [] Angry [] Fearful [] Anxious [] Often cries [] Exhaustion [] Unable to work [] Unable to attend islam [] Unable to walk/stand [] Unable to read [] Unable to drive [] Unable to eat/drink [] Unable to sleep [] Unable to be with family [] Patient intubated [] Other: Summary Chaplains Milind prayed with Patient. Time spent with patient 10 minutes.
[2019-10-24] MEDS: famotidine 20 mg/2 mL INJ IVP (14:51)
--- NOTE | 2019-10-24 15:51 | PC.NURSE ---
rcvd verbal order from Dr Avila for [place] 5-325 1 tablet Q6H PRN for pain, H&H and BMP for 9--20 @ 0400. Mat Making Machine Tender entered orders.
[2019-10-24 16:57] LABS: Glucose Point of Care 133 mg/dL (70-110)
--- NOTE | 2019-10-24 16:58 | PC.NURSE ---
bladder scanned patient. bladder scan shows greater than 678ml. patient said she don't feel like she needs to urinate, she said she always urinates more at night than she does during the day and don't want a catheter. [employer] Appeals Judge notified Dr Avila. Per Dr Avila, okay to leave jeong catheter out for now, continue to monitor patient for urinary retention, encourage patient to urinate more often.
--- NOTE | 2019-10-24 17:31 | PC.NUTR ---
NUTR CONSULT: interviewed pt post op, sleeve. Discussed PRO needs/fluid need and diet progression. Will send PRO source jello 1/day until discharge. Pt displayed understanding of goals.
[2019-10-24 20:28] LABS: Glucose Point of Care 121 mg/dL (70-110)
[2019-10-25] MEDS: famotidine 20 mg/2 mL INJ IVP ×2 (01:32→14:19)
[2019-10-25] MEDS: sodium chloride 0.9% 1,000 ML 100 ML IV ×2 (03:11→12:09)
[2019-10-25 03:35] VITALS: BP 148/71; PULSE 70; RESP 12; TEMP 37; O2SAT 94
[2019-10-25 05:09] LABS: Hemoglobin 11.9 g/dL (11.5-15.3)
[2019-10-25 05:35] LABS: Anion Gap 14.8 (5-19); Blood Urea Nitrogen 8 mg/dL (8-23); Calcium 8.3 mg/dL (8.5-10.5); Carbon Dioxide 21 mmol/L (22-29); Chloride 98 mmol/L (98-107); Glomerular Filtration Rate 99.7 mL/min (90-130); Glucose 110 mg/dL (65-115); Osmolality Calculated 267 mOsm/kg (285-295); Potassium 3.8 mmol/L (3.5-5.1); Sodium 130 mmol/L (136-145)
--- NOTE | 2019-10-25 06:01 | PM.PN ---
Subjective Subjective: Interval history: Patient overall feels better and undergone an upper GI study that showed normal surgical anatomy status post laparoscopic vertical sleeve gastrectomy. She did retain some urine yesterday but did not require in and out catheter yet per nursing report and the patient as well that the urine was smelly and concentrated. Patient has been tolerating slowly p.o. intake and was switched to p.o. pain medications.Her blood pressure pressure was running higher. Vitals/I&O/Wt Last Vital Signs Temp 98.6 F 10/25/19 03:35 Pulse 70 10/25/19 03:35 Resp 12 10/25/19 03:35 BP 148/71 10/25/19 03:35 Pulse Ox 94 10/25/19 03:35 10/24/19 10/24/19 10/25/19 14:59 22:59 06:59 Intake Total 966.667 / 605.965 8046 / 2156.667 Output Total 50 / 50 650 / 700 450 / 1150 Balance - 316.667 / 296.667 710 / 1006.667 Physical Exam Narrative: EXAM NARRATIVE: Patient is conscious alert oriented X3 BMI 35.5 Head and neck examination PERRLA no masses no cervical lymphadenopathy no jaundice Cardiac examination audible S1-S2 no murmurs no gallops no arrhythmias Chest is clear bilateral,abscence of Rhonchi or wheezes,no surgical emphysema Abdomen nontender nondistended soft no organomegaly guarding or rigidity/no signs of peritonitis Incisions are clean dry and intact Extremities no cyanosis no clubbing no edema Urinary Catheter Management^: Zhang: Cath Placed During This Visit: yes, but has since been removed by the nurse Reason for Continuing Indwelling Catheter: Decision to DC Catheter Urinary Catheter Date of Insertion: 10/23/19 Urinary Catheter Time of Insertion: 07:20 Date Urinary Catheter Removed: 10/24/19 Time Urinary Catheter Discontinued: 06:30 Data : 10/25/19 04:01 10/25/19 04:01 A&P Assessment and plan (1) S/P laparoscopic sleeve gastrectomy: 5:50 AM : Patient undergone uneventful laparoscopic vertical sleeve gastrectomy 10/23/2019 Resume blood pressure medications and levothyroxine A bolus of 500 mL of normal saline Urinalysis and culture. Encourage ambulation Incentive spirometer every hour Shall patient continues to do well through the day and tolerating p.o. intake with plan to discharge home Assurance and education All questions have been answered and all concerns have been addressed to patient's satisfaction. Attestations Medical Necessity Statement*: Medical necessity care is expected to cross 2 midnights due to the need for IV pain medications and making sure patient is tolerating well p.o. intake. Coding Level of Care Code Acute Software Licensing Specialist for [facility] Fwd Diagnoses S/P laparoscopic sleeve gastrectomy Z98.84
[2019-10-25] MEDS: sodium chloride 0.9% 500 ML IV (06:09)
[2019-10-25] MEDS: heparin 5,000 unit/mL INJ 1 mL 5000 UNIT SUBCUT ×2 (06:09→14:19)
[2019-10-25 07:00] LABS: Glucose Point of Care 101 mg/dL (70-110)
[2019-10-25 07:39] VITALS: BP 157/82; PULSE 67; RESP 18; TEMP 37.1; O2SAT 95
[2019-10-25] MEDS: lisinopril 20 mg Tablet PO (08:16)
[2019-10-25] MEDS: levothyroxine 125 mcg Tablet PO (08:16)
[2019-10-25] MEDS: ondansetron 2 mg/ML SDV 2 mL 4 MG IVP (08:52)
[2019-10-25 09:49] LABS: Add Urine Microscopic? NO
[2019-10-25] MEDS: HYDROcodone-acetaminophen 5-325 mg Tablet 1 TAB PO (09:50)
[2019-10-25 09:53] LABS: Bilirubin Urine Neg (NEGATIVE); Blood Urine Neg (Negative); Glucose Urine UA Norm (Normal); Ketones Urine 2+ (Negative); Leukocyte Esterase Urine Negative (Negative); Nitrate Urine Negative (Negative); Protein Urine Neg (Negative); Urine Appearance Clear (CLEAR); Urine Color Yellow (Yellow); Urobilinogen Urine Norm (Negative); pH Urine 6.5 (5-7)
[2019-10-25 10:51] LABS: Glucose Point of Care 111 mg/dL (70-110)
[2019-10-25 11:20] VITALS: BP 151/85; PULSE 65; RESP 18; TEMP 36.7; O2SAT 94
[2019-10-25] MEDS: metoclopramide 5 mg/mL SDV 2 mL IVP (14:19)
[2019-10-25 15:20] VITALS: BP 134/75; PULSE 67; RESP 16; TEMP 36.9; O2SAT 98
--- NOTE | 2019-10-25 15:46 | P.DS_ITS ---
Discharge Providers Date of Admission: 10/23/19 05:35 Date of Discharge: October 25, 2019 Attending Provider at Admission: David Avila MD Attending Provider at Discharge: David Avila MD Primary Care Provider: JAMES Jorge Diagnoses at Discharge Discharge Diagnosis (1) S/P laparoscopic sleeve gastrectomy: Reason for Visit Reason for Visit: Obesity Brief History: This is a pleasant 69-year-old female patient with history of obesity and associated multiple medical comorbidities. Patient undergone supervised medical weight loss and met the appropriate criteria and indications for weight loss surgery in the form of laparoscopic vertical sleeve gastrectomy. Patient overall did well and was admitted after surgery for inpatient admission. Continued to tolerate well p.o. intake and maintained good urine output yet at some point urine had some odor and urinalysis was sent and showed negative findings. Patient required IV pain medications that was switched to p.o. pain medications and continued to pass gas. Blood pressure was under control per p.o. pain medications. Patient continued to do well and met the criteria for safe discharge. Hospital Course Discharge Summary: Patient overall did well during her hospital stay and maintained to have stable vital signs and good urine output. Tolerated p.o. intake and upper GI study status post laparoscopic vertical sleeve gastrectomy was done and showed normal findings. Normal appearance of the gastric sleeve. No extravasation of contrast. Medical necessity; Patient required hospitalization inpatient admission past 2 midnights to have her pain control with IV pain medications and to make sure that she is tolerating well p.o. intake. Physical Exam Narrative: EXAM NARRATIVE: EXAM NARRATIVE: Patient is conscious alert oriented X3 BMI 35.5 Head and neck examination PERRLA no masses no cervical lymphadenopathy no jaundice Cardiac examination audible S1-S2 no murmurs no gallops no arrhythmias Chest is clear bilateral,abscence of Rhonchi or wheezes,no surgical emphysema Abdomen nontender nondistended soft no organomegaly guarding or rigidity/no signs of peritonitis Incisions are clean dry and intact Extremities no cyanosis no clubbing no edema Urinary Catheter Management^: Zhang: Cath Placed During This Visit: yes, but has since been removed by the nurse Reason for Continuing Indwelling Catheter: Decision to DC Catheter Urinary Catheter Date of Insertion: 10/23/19 Urinary Catheter Time of Insertion: 07:20 Date Urinary Catheter Removed: 10/24/19 Time Urinary Catheter Discontinued: 06:30 Discharge Data Data Completed and Pending: Completed Studies During Hospitalization Category Date Time Status [place] upper GI [place] [id number] Routine Exams 10/24/19 08:00 Completed Pending at discharge Category Date Time Status ES surgery / GI i mages Routine Exams 10/23/19 06:34 Taken Pathology: Surgic al [PTH] Routine Pth 10/23/19 09:39 Received Labs from last 24 hours 10/25/19 10/25/19 10/25/19 10:45 09:48 06:53 Hgb Hct Sodium Potassium Chloride Carbon Dioxide Anion Gap BUN Creatinine GFR Calculation Glucose POC Glucose 111 101 Calculated Osmolal ity Calcium Urine Color Yellow Urine Appearance Clear Urine pH 6.5 Ur Specific Gravit y 1.010 Urine Protein Neg Urine Glucose (UA) Norm Urine Ketones 2+ H Urine Blood Neg Urine Nitrate Negative Urine Bilirubin Neg Urine Urobilinogen Norm Ur Leukocyte Janee ase Negative 10/25/19 10/25/19 10/24/19 04:01 04:01 20:18 Hgb 11.9 Hct 35.0 L Sodium 130 L Potassium 3.8 Chloride 98 Carbon Dioxide 21 L Anion Gap 14.8 BUN 8 Creatinine 0.6 GFR Calculation 99.7 Glucose 110 POC Glucose 121 Calculated Osmolal ity 267 L Calcium 8.3 L Urine Color Urine Appearance Urine pH Ur Specific Gravit y Urine Protein Urine Glucose (UA) Urine Ketones Urine Blood Urine Nitrate Urine Bilirubin Urine Urobilinogen Ur Leukocyte Janee ase 10/24/19 16:52 Hgb Hct Sodium Potassium Chloride Carbon Dioxide Anion Gap BUN Creatinine GFR Calculation Glucose POC Glucose 133 Calculated Osmolal ity Calcium Urine Color Urine Appearance Urine pH Ur Specific Gravit y Urine Protein Urine Glucose (UA) Urine Ketones Urine Blood Urine Nitrate Urine Bilirubin Urine Urobilinogen Ur Leukocyte Janee ase Procedures Performed: Laparoscopic vertical sleeve gastrectomy. Vitals: Last Vital Signs Temp 98.5 F 10/25/19 15:20 Pulse 67 10/25/19 15:20 Resp 16 10/25/19 15:20 BP 134/75 10/25/19 15:20 Pulse Ox 98 10/25/19 15:20 Discharge Plan Discharge Patient Disposition: Home Condition: Stable Prescriptions: New Transderm-Scop 1 mg over 3 days patch 3 day 1 patch TRANSDERMA Q3D PRN (Reason: nausea and vomiting) Qty: 1 RF: 3 [place] 5-325 mg tablet 1 tab PO Q6H PRN (Reason: pain) Qty: 28 RF: 0 Continued bupropion HCl [Wellbutrin SR] 150 mg tablet sustained-release 12 hr 100 mg PO BID RF: 0 levothyroxine 125 mcg capsule 125 mcg PO DAILY RF: 0 lisinopril 20 mg tablet 20 mg PO DAILY RF: 0 fluticasone propionate [Allergy Relief (fluticasone)] 50 mcg/actuation spray,suspension 2 spray INTRANASAL DAILY RF: 0 montelukast [Singulair] 10 mg tablet 10 mg PO DAILY RF: 0 One Daily Calcium/Iron Tablet 1 tab PO DAILY RF: 0 docusate sodium [Dulcolax Stool Softener (dss)] 100 mg capsule 100 mg PO BID RF: 0 cyclobenzaprine 10 mg tablet 10 mg PO TID Qty: 30 RF: 0 ezetimibe [Zetia] 10 mg tablet 10 mg PO DAILY Qty: 30 RF: 0 vitamin B complex Capsule 1 cap PO DAILY RF: 0 valacyclovir 500 mg Tablet 500 mg PO DAILY RF: 0 alprazolam 0.25 mg Tablet 0.25 mg PO TID PRN (Reason: Anxiety) RF: 0 Zyrtec 10 mg Capsule 10 mg PO DAILY RF: 0 biotin 1 mg Capsule 1 mg PO DAILY RF: 0 magnesium citrate 125 mg Capsule 500 mg PO DAILY RF: 0 pseudoephedrine HCl [Sudogest] 30 mg tablet 30 mg PO QID PRN (Reason: Congestion) RF: 0 albuterol sulfate 90 mcg/actuation HFA aerosol inhaler 2 puff INHALATION QID PRN (Reason: Shortness Of Breath Or Wheezing) RF: 0 nitroglycerin 0.4 mg tablet, sublingual 0.4 mg sublingual PRN PRN (Reason: Angina) RF: 0 Held aspirin [Aspir-81] 81 mg Tablet,Delayed Release (Dr/Ec) 81 mg PO DAILY RF: 0 Hold Instructions: Resume on 11/01/19. Discharge Orders: Discharge Order (Routine); Ordered 10/25/19 Ordered By: David Avila Referrals: David Avila MD [Physician] - 11/02/19 9:45 am (You have an appointment with Dr. Avila on November 01 at 9:45 AM.) Discharge Diet: As Directed Discharge Activity: Increase activity as tolerated Patient Instructions: Scopolamine (Absorbed through the skin), Hydrocodone/Acetaminophen (By mouth), Gastritis (DC), Obesity (DC), Laparoscopic Sleeve Gastrectomy (DC) Activity Restrictions/Additional Instructions: 1. Patient can shower after 48 hours from surgery 2. Leave incisions to air 3. Up and walking as tolerated 4. Do lift more than 5 pounds first 2 weeks after surgery and not more than 25 pounds 6 to 8 weeks after surgery. 5. Do not operate heavy machinery or drive while using pain medications. 6.Contact the office or return to the ER for worsening nausea vomiting fevers or chills, or noticing any redness around incision sites or discharge. 7.Avoid constipation Discharge Date/Time: 10/25/19 16:34 Discharge Attestations Time Spent in Discharge Care*: less than 30 min Specific Discharge Activities: Specific discharge activities: educating patient and educating and/or supporting family/caregiver Status at Discharge: Cognitive status at discharge: cognitively intact , Behavioral status at discharge: cooperative , Functional status at discharge: independent ambulation Overall status at discharge: patient is progressing back to baseline Quality Metrics Clinical Quality Measures During this hospital stay, did patient experience: None Coding Level of Care Code Acute Grinder Set Up Operator External for [facility] Fwd Diagnoses S/P laparoscopic sleeve gastrectomy Z98.84
[2019-10-25 16:33] VITALS: BP 134/75; PULSE 67; RESP 16; TEMP 36.9; O2SAT 98
== END 2019-10-25 16:34 | disposition home or self-care (01) | DRG 621 ==
PROVIDERS: Admitting Provider Surgery; PCP Registered Nurse; Visit Provider Surgery
PROC: 0DB64Z3 Excision of Stomach, Percutaneous Endoscopic Approach, Vertical (ICD-10-PCS; CPT 43775; principal; 2019-10-23 07:00)
PROC: 0DJ08ZZ Inspection of Upper Intestinal Tract, Via Natural or Artificial Opening Endoscopic (ICD-10-PCS; CPT 43235; 2019-10-23 07:00)
DX: E66.9 Obesity, unspecified (principal); Z68.35 Body mass index [BMI] 35.0-35.9, adult; K21.9 Gastro-esophageal reflux disease without esophagitis; E78.5 Hyperlipidemia, unspecified; I10 Essential (primary) hypertension; E03.9 Hypothyroidism, unspecified; K58.1 Irritable bowel syndrome with constipation; G62.9 Polyneuropathy, unspecified; F41.8 Other specified anxiety disorders; M19.90 Unspecified osteoarthritis, unspecified site; Z95.5 Presence of coronary angioplasty implant and graft; Z98.1 Arthrodesis status; Z96.659 Presence of unspecified artificial knee joint; Z87.891 Personal history of nicotine dependence
CPT/HCPCS: 12345; 36415; 36416; 43235; 51702; 74240; 80048; 81003; 82962; 85014; 85018; 88309; 96365; 96372; 96375; C9113; J0131; J0690; J1100; J1644; J2270; J2370; J2405; J2704; J2710; J2765; J3010; J3490; J7030; J7040

== ENCOUNTER 2019-11-06 10:32 | Outpatient (CLI) | payer MEDICARE, OTHER, SELFPAY ==
--- NOTE | 2019-11-06 11:00 | CT_ITS ---
WS: [id number] CT ABDOMEN AND PELVIS WITH CONTRAST HISTORY: wound dehiscence TECHNIQUE: Imaging performed of the abdomen and pelvis with IV contrast. Single phase imaging of the abdomen. Coronal and sagittal reformats are submitted. All CT scans at [facility] use at least one of these dose optimization techniques: automated exposure control; mA and/or kV adjustment per patient size (includes targeted exams where dose is matched to clinical indication); or iterativ e reconstruction. IV CONTRAST: Omnipaque 300; 95 mL IV. Oral contrast: Yes. DLP: 1394.44 mGy.cm COMPARISON: None available. Lower thorax: Lung bases are clear. Heart is normal size. Small hiatal hernia. Liver/biliary system: Normal size with no intrahepatic dilatation. Gallbladder: Normal. No gallstones or wall thickening. No pericholecystic fluid. Pancreas: Normal. Spleen: Normal. Adrenal glands: Normal. Right kidney: Normal size kidney. No obstruction. Cortical cyst measures 8 mm from the mid kidney. Left kidney: Normal. Aorta: Mild atherosclerosis with no aneurysm. Lymphadenopathy: None. Free fluid: None. GI tract: Normal appendix. No GI tract obstruction. Surgical sutures are noted within the stomach fro m the recent gastric sleeve. No mesenteric collection. Abdominal wall: Soft tissue thickening along the anterior abdominal wall, just to the LEFT of midline . There is soft tissue thickening involving the LEFT rectus sheath extending over length of 4.8 cm an d transversely by 7.4 cm. There is a soft tissues tract extending over length of 6.0 cm to the rectus sheath. This tract contains air and is by 1.2 cm. There is adjacent inflammation. No defin ite abscess at this time. Additional healing tract over the RIGHT rectus abdominis. Pelvis: Normal. Bones: Moderate degenerative changes within the lumbar spine. Osteophytes and air within the disc. RI GHT convex lumbar curvature. CT/CT abdomen pelvis w con* [id number] IMPRESSION: 1. Wound dehiscence over the LEFT abdominal wall. There is air along the subcu taneous tract extending through the rectus abdominous but no fluid collection o r abscess at this time. There is a moderate amount of surrounding cellulitis an d postinflammatory changes in the LEFT rectus abdominis. Separation of the trac t is 1.2 cm. 2. No intra-abdominal free fluid or abscess.
[2019-11-06] MEDS: iohexol 300 mg/mL 50 mL Btl PO (12:09)
[2019-11-06] MEDS: iohexol 300 mg/mL 100 mL Btl IV (12:12)
== END 2019-11-06 10:33 | disposition home or self-care (01) ==
LOC: RAD 10:34
PROVIDERS: PCP Registered Nurse; Visit Provider Surgery
DX: T81.30XA Disruption of wound, unspecified, initial encounter (principal); X58.XXXA Exposure to other specified factors, initial encounter
CPT/HCPCS: 74177

== ENCOUNTER → 2020-01-25 17:50 | Outpatient (BNVA) | payer MEDICARE, OTHER, SELFPAY | PROVIDERS: PCP Registered Nurse; Referring Provider Surgery; Visit Provider Surgery | DX: E66.9 Obesity, unspecified (principal); K29.70 Gastritis, unspecified, without bleeding | CPT/HCPCS: 82652; 83540; 84425; 84630 ==

== ENCOUNTER 2020-05-14 07:47 | Outpatient (CLI) | payer MEDICARE, OTHER, SELFPAY ==
--- NOTE | 2020-05-14 07:58 | MR_ITS ---
WS: [id number] MRI BRAIN WITH HIGH-RESOLUTION IMAGING THROUGH THE INTERNAL AUDITORY CANALS WITHOUT AND WITH CONTRAST HISTORY: SENSORINEURAL HEARING LOSS, BILATERAL TINNITUS, BILATERAL COMPARISON: 06/07/2018 TECHNIQUE: Multiplanar, multisequence imaging is performed through the brain. Additional 3 mm imaging performed in multiple planes through the internal auditory canal. Postcontrast imaging with 20 ml's of MultiHance. No acute intracranial hemorrhage, midline shift, edema or mass effect. No acute infarct. Mild small vessel ischemic changes within the white matter greatest surrounding the ventricles. No prior lacunar infarct or large territory infarct. Ventricles and extra-axial spaces are normal. No inferior displacement of cerebellar tonsils. Clivus and pituitary gland are normal. Internal and external auditory canals: Unremarkable. Cranial nerves VII and VIII complexes: Unremarkable. No enhancement or mass. Cerebellopontine angles: Normal. Paranasal sinuses: Normal. Mastoid air cells: Normal. Calvarium and scalp: Normal. Visualized bill moore's slough of Alexander and dural venous sinuses demonstrate no abnormality. MR/MR iac's wo/w con* [id number] IMPRESSION: 1. Unremarkable internal auditory canals. No masses or abnormal enhancement. 2. Mild chronic microvascular ischemic disease with no prior infarcts. 3. No acute infarct or hemorrhage. 4. No mass at the cerebellopontine angle.
[2020-05-14] MEDS: gadobenate dimeglumine 20 mL vial IV (08:52)
== END 2020-05-14 07:48 | disposition home or self-care (01) ==
LOC: RADWPI 07:53
PROVIDERS: PCP Registered Nurse; Visit Provider Specialist
DX: H90.3 Sensorineural hearing loss, bilateral (principal); H93.13 Tinnitus, bilateral; I67.82 Cerebral ischemia
CPT/HCPCS: 70553; A9577

== ENCOUNTER → 2020-10-29 14:18 | Outpatient (BNVA) | payer MEDICARE, OTHER, SELFPAY | PROVIDERS: PCP Registered Nurse; Visit Provider Nurse Practitioner Family | DX: Z20.822 Contact with and (suspected) exposure to COVID-19 (principal) | CPT/HCPCS: 87635 ==

== ENCOUNTER → 2020-12-23 11:53 | Outpatient (BNVA) | payer MEDICARE, OTHER, SELFPAY | PROVIDERS: PCP Registered Nurse; Visit Provider Emergency Medicine | DX: R39.9 Unspecified symptoms and signs involving the genitourinary system (principal) | CPT/HCPCS: 81000 ==

== ENCOUNTER → 2021-03-03 13:45 | Outpatient (BNVA) | payer MEDICARE, SELFPAY | PROVIDERS: PCP Registered Nurse; Visit Provider Specialist | DX: M25.561 Pain in right knee (principal); M25.569 Pain in unspecified knee | CPT/HCPCS: 73560; 73565 ==

== ENCOUNTER → 2021-03-14 17:30 | Outpatient (BNVA) | payer MEDICARE, SELFPAY | PROVIDERS: PCP Registered Nurse; Visit Provider Nurse Practitioner Family | DX: Z20.822 Contact with and (suspected) exposure to COVID-19 (principal) | CPT/HCPCS: 87635 ==

== ENCOUNTER → 2021-06-04 10:31 | Outpatient (BNVA) | payer MEDICARE, SELFPAY | PROVIDERS: PCP Registered Nurse; Visit Provider Specialist | DX: M17.11 Unilateral primary osteoarthritis, right knee (principal); Z96.652 Presence of left artificial knee joint | CPT/HCPCS: 20610; 99213; J1100; J2795; J3301 ==

== ENCOUNTER → 2021-08-11 13:11 | Outpatient (BNVA) | payer MEDICARE, SELFPAY | PROVIDERS: PCP Registered Nurse; Referring Provider Registered Nurse; Visit Provider Specialist | DX: Z96.652 Presence of left artificial knee joint (principal); M25.562 Pain in left knee | CPT/HCPCS: 73560; 73565; 99213; 99214 ==

== ENCOUNTER → 2021-08-22 10:45 | Outpatient (BNVA) | payer MEDICARE, SELFPAY | PROVIDERS: PCP Registered Nurse; Visit Provider Emergency Medicine | DX: J02.8 Acute pharyngitis due to other specified organisms (principal); B96.89 Other specified bacterial agents as the cause of diseases classified elsewhere | CPT/HCPCS: 87071; 87880 ==

== ENCOUNTER → 2021-08-28 12:35 | Outpatient (BNVA) | payer MEDICARE, SELFPAY | PROVIDERS: PCP Registered Nurse; Visit Provider Emergency Medicine | DX: B34.9 Viral infection, unspecified (principal) | CPT/HCPCS: 87635 ==

== ENCOUNTER → 2021-09-13 14:19 | Outpatient (BNVA) | payer MEDICARE, SELFPAY | PROVIDERS: PCP Registered Nurse; Visit Provider Emergency Medicine | DX: R39.9 Unspecified symptoms and signs involving the genitourinary system (principal) | CPT/HCPCS: 81000; 87077; 87086; 87184 ==

== ENCOUNTER → 2021-09-18 08:00 | Outpatient (BNVA) | payer MEDICARE, SELFPAY | PROVIDERS: PCP Registered Nurse; Visit Provider Specialist | DX: M17.11 Unilateral primary osteoarthritis, right knee (principal); Z71.89 Other specified counseling | CPT/HCPCS: 20610; J1100; J2795; J3301 ==

== ENCOUNTER → 2021-10-29 13:07 | Outpatient (BNVA) | payer MEDICARE, SELFPAY | PROVIDERS: PCP Registered Nurse; Visit Provider Podiatrist Foot & Ankle Surgery | DX: M25.571 Pain in right ankle and joints of right foot (principal); M25.371 Other instability, right ankle; G89.29 Other chronic pain | CPT/HCPCS: 99203 ==

== ENCOUNTER → 2021-11-03 15:16 | Outpatient (BNVA) | payer MEDICARE, SELFPAY | PROVIDERS: PCP Registered Nurse; Visit Provider Specialist | DX: M17.11 Unilateral primary osteoarthritis, right knee (principal) | CPT/HCPCS: 73560; 73565; 99213 ==

== ENCOUNTER 2021-11-14 13:18 | Outpatient (CLI) | payer MEDICARE, SELFPAY ==
--- NOTE | 2021-11-14 14:00 | CT_ITS ---
WS: [id number] CT RIGHT KNEE, NONCONTRAST. [facility] PROTOCOL. HISTORY: further evaluate arthritic changes and deformity Technique: All CT scans at [facility] use at least one of these dose optimization techniques: automated exposure control; mA and/or kV adjustment per patient size (includes targeted exams where dose is matched to clinical indication); or iterative reconstruction. DLP: 1002.22 mGy.cm COMPARISON: None available. Axial imaging RIGHT knee; moderate narrowing of patellofemoral joint. Moderate narrowing of the media l compartment. Near bone upon bone. Axial imaging RIGHT hip: Normal position of the RIGHT hip in the acetabulum. No fracture. Axial imaging RIGHT ankle: Normal alignment. No destructive bone lesions. CT/CT knee RT wo con* [id number] IMPRESSION: Axial imaging RIGHT knee as per [facility] protocol for orthopedic evaluation.
== END 2021-11-14 13:19 | disposition home or self-care (01) ==
LOC: RAD 13:20
PROVIDERS: PCP Registered Nurse; Visit Provider Specialist
DX: M17.11 Unilateral primary osteoarthritis, right knee (principal); R39.9 Unspecified symptoms and signs involving the genitourinary system
CPT/HCPCS: 73700; 81000; 99213

== ENCOUNTER 2021-11-24 07:22 | Outpatient (CLI) | payer MEDICARE, SELFPAY ==
--- NOTE | 2021-11-24 07:30 | NM_ITS ---
WS: [id number] THREE-PHASE BONE SCAN HISTORY: knee pain, LEFT knee pain, prior replacement. COMPARISON: 08/11/2021 and 11/03/2021 Patient is is injected with 26.3 mCi Tc99m HDP intravenously. Immediate angiographic phase imaging is performed over the area of concern. Static blood pool imaging also performed. Two-hour whole-body sc intigrams performed in anterior and posterior projections. Additional large field of view imaging sub mitted as necessary. Arterial and blood pool phase images are normal. Photopenic defect LEFT knee at the site of the prior knee prosthesis. There is moderate increased uptake surrounding the entire LEFT tibial prosthesis. Increased uptake mora rrounds the tibial stem. There is also mild increased uptake surrounding the prosthetic components in the distal femur. Moderate increased uptake medial and lateral and patellofemoral compartment of the RIGHT knee from os teoarthritis. Mild thoracolumbar scoliosis. LEFT glenohumeral joint arthritis. No soft tissue abnormality. Normal u ptake in the kidneys. NM/NM bone 3 phase [id number] IMPRESSION: 1. No evidence for osteomyelitis or septic joint at the knees. 2. Suspicious for loosening involving the LEFT knee prosthesis. There is incre ased uptake involving the femoral and tibial components. 3. Moderate RIGHT knee tricompartment osteoarthritis.
== END 2021-11-24 07:23 | disposition home or self-care (01) ==
LOC: RAD 07:23
PROVIDERS: PCP Registered Nurse; Visit Provider Specialist
DX: M25.562 Pain in left knee (principal); Z96.652 Presence of left artificial knee joint; M17.11 Unilateral primary osteoarthritis, right knee
CPT/HCPCS: 78315; A9561

== ENCOUNTER → 2021-11-28 14:42 | Outpatient (BNVA) | payer MEDICARE, SELFPAY | PROVIDERS: PCP Registered Nurse; Visit Provider Emergency Medicine | DX: N39.0 Urinary tract infection, site not specified (principal); M53.3 Sacrococcygeal disorders, not elsewhere classified | CPT/HCPCS: 81000 ==

== ENCOUNTER → 2021-12-15 14:01 | Outpatient (BNVA) | payer MEDICARE, SELFPAY | PROVIDERS: PCP Registered Nurse; Visit Provider Specialist | DX: M17.11 Unilateral primary osteoarthritis, right knee (principal); Z96.652 Presence of left artificial knee joint | CPT/HCPCS: 99214 ==

== ENCOUNTER 2021-12-23 11:08 | Outpatient (CLI) | payer MEDICARE, SELFPAY | END 2021-12-23 11:09 | disposition home or self-care (01) | LOC: RT 12-31 11:10 | PROVIDERS: PCP Family Medicine; Visit Provider Specialist | DX: Z01.89 Encounter for other specified special examinations (principal); R00.1 Bradycardia, unspecified | CPT/HCPCS: 93005 ==

== ENCOUNTER 2021-12-29 11:26 | Outpatient (CLI) | payer MEDICARE, SELFPAY | END 2021-12-29 11:27 | disposition home or self-care (01) | LOC: SPT 11:27 | PROVIDERS: PCP Family Medicine; Visit Provider Podiatrist Foot & Ankle Surgery | DX: Z46.89 Encounter for fitting and adjustment of other specified devices (principal); M25.373 Other instability, unspecified ankle; M17.11 Unilateral primary osteoarthritis, right knee; Z96.652 Presence of left artificial knee joint | CPT/HCPCS: 97760; 99213; L3030 ==

== ENCOUNTER 2021-12-30 13:38 | Observation (INO) | payer MEDICARE, SELFPAY ==
[2021-12-23 09:49] VITALS: BMI 37.1
--- NOTE | 2021-12-23 09:53 | ECG_ITS ---
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 Measurements Intervals [place] Rate: 59 P: 54 MT: 191 QRS: 1 QRSD: 85 T: 30 QT: 373 QTc: 371 Interpretive Statements SINUS BRADYCARDIA POSSIBLE LEFT ATRIAL ENLARGEMENT [-0.1mV P-WAVE IN V1/V2] LOW QRS VOLTAGE IN PRECORDIAL LEADS [QRS DEFLECTION < 1.0 mV IN CHEST LEADS] POSSIBLE ANTERIOR MYOCARDIAL INFARCTION , PROBABLY OLD [30 ms Q WAVE IN V3/V4, OR R < 0.2 mV IN V4] Compared to ECG 10/13/2019 11:20:31 Myocardial infarct finding now present Sinus rhythm no longer present Electronically Signed On 12-23-2021 21:53:20 CDT by Delgado Samayoa M.D. [id number]
--- NOTE | 2021-12-23 10:09 | ANES.PREANE2 ---
Pre-Anesthetic Assessment Height/Weight: Height 1.68 m Weight 104.326 kg Preop Diagnosis: Obesity Operation Date: 12/30/21 07:00 Proposed Procedures p Manan Robot Total Knee Arthroplasty right 50351,M17.10(Right) - Wendy Heard MD Familial anesthetic complications: PONV Social No alcohol and No tobacco Exam alert, oriented x 3, clear to auscultation bilaterally and regular rate & rhythm Airway Mallampati: Class III Dentition: other (implant) Pulmonary None reported CV/HEM Coronary Artery Disease (stent > 1 year ago) and Hypertension GI gastritis, hx gastrectomy Metabolic Morbid Obesity and Thyroid Disease [facility] Lower Back Pain and Scoliosis Neuropsych Transient Ischemic Attack (2016) [place]Y SHOSHONE and legally blind Anesthetic Plan ASA status: 3 Anesthesia: Regional (specify below) Other: spinal + adductor Risk of > 500 ml blood loss (7ml/kg in children): Yes, adequate IV access and fluids planned Medications/Allergies Home Medications Medication Instructions Recorded Confirmed Last Taken Type docusate sodium 100 mg capsule 100 mg PO DAILY 02/28/19 12/23/21 10/16/19 History (Dulcolax Stool Softener (docusate)) lisinopril 20 mg tablet 20 mg PO DAILY 02/28/19 12/23/21 10/16/19 History vzblixasvczo-Bf-gixp-minerals (One 1 tab PO DAILY 02/28/19 12/23/21 10/16/19 History Daily Calcium/Iron tablet) alprazolam 0.25 mg tablet 0.25 mg PO TID PRN Anxiety 10/13/19 12/23/21 10/17/19 07:15 History biotin 1 mg capsule 1 mg PO DAILY 10/17/19 12/23/21 10/16/19 History magnesium citrate 125 mg capsule 500 mg PO DAILY 10/17/19 12/23/21 10/16/19 History nitroglycerin 0.4 mg sublingual 0.4 mg sublingual PRN PRN Angina 10/20/19 12/23/21 Unknown History tablet cetirizine 10 mg capsule (Zyrtec) 20 mg PO DAILY 12/23/20 12/23/21 Unknown History levothyroxine 125 mcg capsule 100 mcg PO DAILY 12/23/20 12/23/21 Unknown History pantoprazole 40 mg tablet,delayed 40 mg PO DAILY 03/14/21 12/23/21 Unknown History release Custom Sole Supports #1 ea 10/29/21 12/19/21 Unknown Rx ciprofloxacin HCl 500 mg tablet 500 mg PO BID 5 days #10 tabs 12/19/21 12/23/21 Unknown Rx phenazopyridine 200 mg tablet 200 mg PO Q8H PRN pain #9 tabs 12/19/21 12/23/21 Unknown Rx (Pyridium) bupropion HCl 100 mg tablet,12 hr 150 mg PO BID 12/23/21 12/23/21 Unknown History sustained-release cyclobenzaprine 10 mg tablet 10 mg PO BID 12/23/21 12/23/21 Unknown History ezetimibe 10 mg tablet 10 mg PO DAILY 12/23/21 12/23/21 Unknown History levomefolate calcium 15 mg tablet 15 mg PO DAILY 12/23/21 12/23/21 Unknown History (L-Methylfolate) tizanidine 2 mg tablet 4 mg PO DAILY 12/23/21 12/23/21 Unknown History Allergies Allergy/AdvReac Type Severity Reaction Status Date / Time sulfamethoxazole Allergy Mild Unknown Verified 12/23/21 09:35 [From Bactrim] trimethoprim [From Bactrim] Allergy Mild Unknown Verified 12/23/21 09:35 Gnluoal-ZYJ-MhZ Reductase Allergy Unknown Verified 12/23/21 09:35 Inhibitor [Bdjvbml-Hcb-Fzq Reductase Inhibitor] topiramate [From Topamax] AdvReac ADR-Agitate Verified 12/23/21 09:35 d [facility] Anesthesia Medical History (Updated 12/19/21 @ 10:50 by CARMELO Moore) Chronic constipation Depression with anxiety Gastritis GERD (gastroesophageal reflux disease) History of mammography, screening (~2017) History of Papanicolaou smear of cervix (~2017) Hyperlipidemia Hypertension Hypertension, benign Hyponatremia Hypothyroidism IBS (irritable bowel syndrome) Memory loss Obesity Osteoarthritis Peripheral neuropathy Recurrent UTI Wound dehiscence Surgical History (Updated 12/19/21 @ 10:50 by CARMELO Moore) History of 2 sections History of bilateral breast reduction surgery History of bladder suspension procedure History of carpal tunnel release of both wrists History of colonoscopy (~2013) History of coronary artery stent placement History of lumbar laminectomy for spinal cord decompression History of total knee replacement LEFT S/P laparoscopic sleeve gastrectomy Family History Father Diabetes Hypertension Mother Hypertension Dementia Family/Other Cancer colon Dementia aunt Denies family history of Anesthesia complication Bleeding disorder Social History Smoking and tobacco status: former smoker Quit status (tobacco): has quit using tobacco Second hand smoke exposure: No Alcohol intake: never Desire information about alcohol rehabilitation?: No Desire information about substance/drug rehabilitation?: No Adopted: No Caregiver/support person: Yes Lives independently: Yes Household members: spouse Housing: House Marital status: Highest education level completed: High School Graduate service: No Current occupational status: retired Current occupational exposures/hazards: No Pets and animals: Yes History of recent travel: No Leisure activites: exercise and games Sexually active: No Current gender identity: Female Erica/Synagogue: None Financial difficulty paying for basics: Not Very Hard Female Reproductive History Spontaneous abortions: No Data Anesthesia Cardiac Studies: No Data to Display
[2021-12-23 10:23] LABS: Add Urine Microscopic? YES; Bilirubin Urine Neg (Negative); Blood Urine Neg (Negative); Glucose Urine UA Norm (Normal); Ketones Urine Negative (Negative); Leukocyte Esterase Urine Negative (Negative); Nitrate Urine Positive (Negative); Protein Urine Trace (Negative); Specific Gravity, Urine 1.015 (1.005-1.030); Urine Appearance Clear (CLEAR); Urine Color Yellow (Yellow); Urobilinogen Urine Norm (Negative); pH Urine 7 (5-7)
[2021-12-23 10:31] LABS: Add Urine Culture? No; WBC Urine 0-4 /hpf (0-5)
[2021-12-30] VITALS (25 sets, daily range): BP systolic 130–184; BP diastolic 39–116; PULSE 54–75; RESP 15–28; TEMP 36.3–37.1; O2SAT 95–100; BMI 37.1
[2021-12-30] MEDS: sodium chloride 0.9% 1,000 ML 30 ML IV (06:43)
[2021-12-30] MEDS: CELEcoxib 200 mg Capsule 400 MG PO (06:44)
[2021-12-30] MEDS: acetaminophen 1,000 MG/100 ML PIGGYBACK 400 MG IV ×3 (06:44→23:22)
--- NOTE | 2021-12-30 06:55 | P.HPUD_ITS ---
Surgery/Procedure H&P Update DATE OF PROCEDURE: December 30, 2021 DATE H&P PERFORMED: 12/29/21 H&P UPDATE INFORMATION: I have reviewed H&P completed within last 30 days, I have examined patient prior to procedure, No changes to prior documentation and H&P is in [facility] [place] on date indicated PREOP DIAGNOSIS: Primary osteoarthritis right knee PLANNED PROCEDURE: Operation Date: 12/30/21 07:00 Proposed Procedures p Manan Robot Total Knee Arthroplasty right 04082,M17.10(Right) - Wendy Heard MD Related Problem List Diagnoses (1) Primary localized osteoarthritis of right knee:
[2021-12-30] MEDS: ceFAZolin 2,000 MG in sodium chloride 0.9% (plus) 50 ML 100 MG IV ×3 (07:00→23:22)
--- NOTE | 2021-12-30 07:35 | P.ANESUD_ITS ---
Pre-Anesthetic Update Pre-Anesthetic Assessment: Date of Surgery/Procedure: 12/30/21 Preop Sandra gnosis: Primary osteoarthritis right knee Proposed Procedure: Operation Date: 12/30/21 07:00 Proposed Procedures p Manan Robot Total Knee Arthroplasty right 71717,M17.10(Right) - Wendy Heard MD Any changes to Pre-Anesthetic Assessment?: No Last Intake: Intake Last Liquid Date 12/29/21 Last Liquid Time 23:59 Last Solid Date 12/29/21 Last Solid Time 20:00 Vitals: Temperature 97.4 F L 12/30/21 06:26 Temperature Source Temporal Artery S can 12/30/21 06:26 Pulse Rate 63 12/30/21 06:26 Pulse Rhythm 12/30/21 06:26 Pulse Strength 3+ Normal 12/30/21 06:26 Respiratory Rate 18 12/30/21 06:26 Blood Pressure 138/95 12/30/21 06:26 Blood Pressure Nichelle n 109 12/30/21 06:26 Pulse Oximetry 100 12/30/21 06:26 Oxygen Delivery Me thod 12/30/21 06:26 Exam: Pre-Anes Outpt Exam: alert, oriented x 3, clear to auscultation bilaterally and regular rate & rhythm Cardiac Studies: No Data to Display Anesthesia Procedures Nerve Block: Nerve Block 1: Main Anesthesia: spinal anesthesia block Time Out Performed: Yes Consent: requested by attending/covering physician, from patient, risks and benefits reviewed and patient agrees to proceed Nerve block location: adductor canal (right) Anesthesia monitors applied: pulse oximetry, EKG, BP cuff and oxygen Nerve block position: supine Anesthetic Used: ropivicaine 0.5% Amount of anesthesia used (mL): 20 Ultrasound used to: recognize landmarks Nerve Stimulator Used?: No Interscalene/Femoral BLK: 4 stimuplex 21 g needle used for position and inplane approach Injection: neg aspiration of heme Patient Tolerated Procedure: well Complications: none
--- NOTE | 2021-12-30 07:36 | ANES.PROC ---
Anesthesia Procedures Procedure/Date: 12/30/21 adductor, genicular, ant fem cut nerve blocks Nerve Block ^: Nerve Block 1: Main Anesthesia: spinal anesthesia block Time Out Performed: Yes Consent: requested by attending/covering physician, risks and benefits reviewed and patient agrees to proceed Nerve block location: adductor canal Anesthesia monitors applied: pulse oximetry, EKG, BP cuff and oxygen Nerve block position: supine Anesthetic Used: ropivicaine 0.5% Amount of anesthesia used (mL): 30 Ultrasound used to: recognize landmarks Nerve Stimulator Used?: No Interscalene/Femoral BLK: visualize local anesthetic spread and no vascular puncture identified Injection: neg aspiration of heme Patient Tolerated Procedure: well and no complications Complications: none
--- NOTE | 2021-12-30 08:03 | SUR.OPER ---
called and notified him of surgical start.
[2021-12-30] MEDS: vancomycin 1,000 MG SDV 1000 MG XX (08:15)
[2021-12-30] MEDS: ceFAZolin 1,000 mg SDV 1000 MG IRRIGATION (08:15)
[2021-12-30] MEDS: tranexamic acid 1,000 mg/10mL SDV 1000 MG IRRIGATION (08:16)
[2021-12-30] MEDS: sodium chloride 0.9% 250 mL Bag 50 ML XX (08:18)
--- NOTE | 2021-12-30 10:28 | P.OP_ITS ---
Operative Report Date of procedure: December 30, 2021 Pre-op diagnosis: Primary osteoarthritis right knee with slight flexion contracture Post-op diagnosis: Primary osteoarthritis right knee with slight flexion contracture Post-op findings: Flexion contracture with severe degenerative osteoarthritic change. Minimal osteophytes. Procedure done: Manan assisted right total knee arthroplasty Implants: The [place] total knee system with a size 4 triathlon beaded cruciate retaining femur right, a triathlon titanium tibial component size 4 beaded, a triathlon X3 tibial bearing CS insert size 4 X 9 mm and a beaded triathlon titanium asymmetric patella size 32 x 10 mm Pathology: none sent Surgeon: Wendy Heard Esthetician Makeup Artist: Ahmet Oliver Esthetician Makeup Artist: Surgeon health assistant was required for use of the Manan, including positioning, facilitating surgical visualization, retracting, and input of Manan experience. Anesthesia: MAC (With spinal and supplemental adductor canal block) Estimated blood loss (mL): 100 Tourniquet time (min): 89 (At 275 mmHg) IV fluids (mL): 1,200 Urine output (mL): 300 Complications: None Findings: Severe degenerative osteoarthritis with flexion fracture. No significant osteophytes. Condition: stable Disposition: PACU (Then to floor for postoperative rehabilitation and pain management.) Brief History: Myranda is a 71-year-old woman who presented to my office with bilateral knee issues. She has previously been seen and evaluated for a left total knee arthroplasty placed elsewhere. She presented with complaints of significant right knee pain. After evaluation and discussion, she wished to proceed with right total knee arthroplasty. The patient had a cortisone injection on 09/18/21. Patient explains she only had relief for about a day with the cortisone injection. She states she has been active in physical therapy. She rates her pain a 8/10. She explains walking and activity makes her pain worse.? All activities of daily living are quite uncomfortable for her.? She has not found any comfort from therapy or injections. She reports stiffness and swelling.? At this point, with failure of nonoperative measures, the patient wishes to proceed to right total knee arthroplasty. Risks and complications have been discussed with her. Procedure: The patient was brought to the operating theater, and after undergoing adequate spinal anesthesia supplemented with adductor canal block and MAC, ASA 3, the right lower extremity was prepped with Dura-Prep and draped in usual fashion following placement of a tourniquet high on the leg. The leg was then draped free. Following prepping and draping, the leg was exsanguinated, and the tourniquet was elevated to 275 mmHg for a total tourniquet time of 89 minutes.? Prior to elevation of the tourniquet, but following exposure of the site of surgery, a surgical pause was performed. At the time of the surgical pause, we confirmed the site and side of surgery. Additionally, we confirmed the appropriate and timely administration of preoperative antibiotics, Ancef 2 g and Transexemic acid 1 g.? The availability of equipment was confirmed, and the patient's identity was verbalized as well.? An additional transexemic acid 1 g was given at the end of the surgical procedure as well. Following the surgical pause, an incision was made centering over the patella continuing proximally and distally as necessary to allow access to the knee joint. Dissection continued through skin and soft tissues using a scalpel. Hemostasis was obtained using electrocautery. The skin incision was followed by a median parapatellar arthrotomy. The leg was extended and the patella was able to be displaced laterally.? Appropriate arrays and markers were placed in appropriate position for use of the Manan.? Preoperative planning had been acc omplished and was discussed in detail between the 2 surgeons in this case and also the [facility] business office representative.? Intraoperative mapping of the femur and tibia was accomplished after the arrays were placed.? Internal markers were also placed.? Once we had accomplished the Manan mapping, we began the appropriate resections for placement of the prosthesis.? The plan was for a cruciate retaining right total knee arthroplasty. Once appropriate mapping had been accomplished retraction was established using manual retraction by Dr. Oliver and also the [facility] leg positioner and retractors.? The knee was evaluated.? There was a significant osteoarthritic change with slight flexion contracture.? Appropriate bone resection was accomplished using the Manan.? The femur was sized to a size 4. This started with the femur and subsequently tibial resection was accomplished.? Osteophytes were removed prior to this portion of the procedure.? We had performed a minimal medial release at the beginning of the procedure to allow for placement of the array.? Proximal tibia was evaluated and it was felt that appropriate size for the tibia was a size 4 which matched the femoral component. A trial reduction was accomplished after osteophytes have been removed as well as the medial and lateral menisci.? We had removed the anterior cruciate ligament at the beginning of the case and preserved the posterior cruciate ligament.? Trial reduction was accomplished with a size 4 femoral cruciate retaining component and a size 3 CS tibial bearing insert which was 9 mm in thickness.? With this, we had excellent stability, near full extension, and appropriate alignment.? Trial components were removed after the femur had been drilled.? Posterior release was accomplished on the femoral side to improve extension. Prior to removal of the tibial tray which had been pinned in position with appropriate rotation as determined by the Manan plan, we broached the tibia.? Subsequently, the 4 drill holes were made for the prosthetic component.? All trial components had been removed, and the wound was irrigated.? Plans were made for insertion of the prosthetic components.? Prior to this, the patella was manually prepared.? After resection of the articular surface with the jogging system, it was measured and measured a 32 mm patella.? We resected approximately 8 mm of patella and patellar height was restored with the patellar component. Once again, the wound was irrigated.? The Tritanium tibia was impacted into position.? The beaded femur was then impacted into position in a cementless fashion. The CS tibial insert was placed prior to placement of the femoral component. The patella was pressed into position with a patellar clamp.? Exparel was injected about the components deep and superficially.? The knee was then copiously irrigated with betadine and saline and suctioned dry. Attention was then directed to closure. Closure was accomplished with 0 Vicryl in the fascial tissues.? This was followed by Surgiflo and vancomycin powder.? Following this, a 2-0 Monocryl was used in the subcutaneous tissues, and the skin was closed with skin nilson.? Care was taken to assure an excellent subcutaneous as well as skin closure.? A sterile dressing was then placed consisting of Dermabond Prineo, Telfa, OpSite, sterile soft roll including over the foot, and an Rodolfo wrap. The patient was returned the Recovery Room in a satisfactory condition. X- rays were obtained and reviewed there.? The patient will be discharged to the floor for postoperative rehabilitation and pain management. Related Problem List Diagnoses (1) Primary localized osteoarthritis of right knee: (2) Status post total right knee replacement not using cement:
--- NOTE | 2021-12-30 10:54 | XRR_ITS ---
PROCEDURE INFORMATION: Exam: XR Right Knee Exam date and time: 12/30/2021 10:56 AM Age: 71 years old Clinical indication: Device placement; Joint replacement hardware; Prior surgery; Surgery date: Post-operative (0-2 days); Surgery type: Total knee arthroplasty TECHNIQUE: Imaging protocol: Radiologic exam of the Right knee. Views: 1 or 2 views. COMPARISON: No relevant prior studies available. FINDINGS: Bones/joints: Right total knee arthroplasty noted. Good bone implant interface. No fracture identified. No dislocation. Soft tissues: Expected postsurgical subcutaneous emphysema. Surgical nilson overlying the anterior margin of the knee. XR/XR knee LT 1-2V [id number] IMPRESSION: Normal appearing right total knee arthroplasty.
--- NOTE | 2021-12-30 10:58 | SUR.PHASEI ---
1038 PT TO PACU 5 PT AWAKE ALERT TALKATIVE, VSS IV PATENT TO LT WRIST #20 WITH NS 700 ML UP AT KVO RATE PER GRAVITY, PIID #20 TO LT FA , ID BRACELET TO RT WRIST , PT ID'D WITH 2 IDENTIFERS, MONITOR SR WITH NO ECTOPY NOTED, VSS RT KNEE DRESSING D/I DISTAL RT FOOT PINK WARM PULSE STRONG AND REGULAR , MARKED BILAT FOOT PUMPS ON AND WORKING, FIRST ICE TO RT KNEE. 1055 X RAY AT BEDSIDE, PT AWAKE ALERT HOB AT 30 DEGREES SPINAL ANESTHESIA PT STATES NORMAL SENSATION TO T !2 AREA, PT MOVES BILAT TOES TO COMMAND. PT TAKING ICE CHIPS WITHOUT COMPLAINT.
--- NOTE | 2021-12-30 11:16 | SUR.PHASEI ---
PT OUT OF PHASE 1 NOW IN HOLDING, PT TO OPS BAY 8 HANDOFF AT BEDSIDE TO GIOVANY RN DRESSING AND DISTAL FOOT UNCHANGED MONITOR SR- SB WITH NO ECTOPY NOTED IV PATENT FIRST ICE TO RT KNEE.
--- NOTE | 2021-12-30 11:47 | SUR.EXTENDED ---
patient awake and alert, at bedside. pt holding for bed on medsurg. dressing to right knee dry and intact, first ice in place. patient able to move both legs, wiggle toes of both feet, states her right knee is tingling. patient on room air with sats at 100%.
[2021-12-30] MEDS: oxyCODONE 5 mg IR Tab/Cap PO ×3 (12:13→20:14)
--- NOTE | 2021-12-30 14:10 | SUR.EXTENDED ---
report called to estephanie JOHNSON. patient awake and alert for transport to [facility]. patients left ops to go home. patient on room air with sats at 97%. dressing to right knee dry and intact, patient states some pain.
--- NOTE | 2021-12-30 15:21 | ANE.PACU2 ---
Inpatient post-anesthesia follow up: Airway intact: Yes Vital signs: Temperature 97.6 F Pulse Rate 67 Respiratory Rate 17 Blood Pressure 184/77 Pulse Oximetry 95 Oxygen Delivery Me thod [ Room Air Current Rate & Del kacie] Oxygen Delivery Me thod Room Air Oxygen Flow Rate Fraction of Inspir ed Oxygen Hydration adequate: Yes Nausea and vomiting: No Pain level: 2 Mental status: Baseline
[2021-12-30] MEDS: CELEcoxib 200 mg Capsule PO (18:25)
[2021-12-30] MEDS: cyclobenzaprine 10 mg Tablet PO (18:25)
[2021-12-30] MEDS: sennosides-docusate Tablet 2 TAB PO (18:26)
[2021-12-30] MEDS: calcium carbonate 500 mg Chew Tablet 1000 MG PO (18:26)
[2021-12-30] MEDS: iron polysaccharide complex 150 mg Capsule PO (18:26)
[2021-12-31 04:00] VITALS: BP 174/74; PULSE 68; RESP 17; TEMP 36.8; O2SAT 97
[2021-12-31 05:48] LABS: Basophils % 0.6 %; Eosinophils # 0.2 10^3/uL (0.0-0.8); Eosinophils % 2.3 %; Hematocrit 34.4 % (37.0-47.0); Hemoglobin 11.3 g/dL (11.5-15.3); Lymphocytes # 0.6 10^3/uL (0.8-4.8); Lymphocytes % 9.6 %; Mean Corpuscular HGB Conc 32.8 g/dL (30.0-36.0); Mean Corpuscular Hemoglobin 29.8 pg (28.0-34.0); Mean Corpuscular Volume 90.8 fl (81-99); Mean Platelet Volume 9.3 fL (7.4-10.4); Monocytes # 0.7 10^3/uL (0.2-0.9); Monocytes % 9.9 %; Neutrophils # 5.07 10^3/uL (1.8-7.7); Neutrophils % 77.3 %; Nucleated Red Blood Cells % 0 %; Platelet Count 158 10^3/cmm (130-400); Red Blood Count 3.79 10^6/uL (4.1-5.3); Red Cell Distribution Width 14.1 % (12.1-15.1); White Blood Count 6.6 10^3/uL (4.0-10.0)
[2021-12-31] MEDS: ceFAZolin 2,000 MG in sodium chloride 0.9% (plus) 50 ML 100 MG IV (06:13)
[2021-12-31] MEDS: CELEcoxib 200 mg Capsule PO (06:14)
[2021-12-31] MEDS: acetaminophen 1,000 MG/100 ML PIGGYBACK 400 MG IV (06:14)
[2021-12-31 06:20] LABS: Anion Gap 12.4 (5-19); Blood Urea Nitrogen 14 mg/dL (8-23); Calcium 8.4 mg/dL (8.5-10.5); Carbon Dioxide 23 mmol/L (22-29); Chloride 101 mmol/L (98-107); Creatinine Clr Calc Pharmacy 81.0014; Glomerular Filtration Rate 71.1 mL/min (90-130); Glucose 140 mg/dL (65-115); Osmolality Calculated 277 mOsm/kg (285-295); Potassium 4.4 mmol/L (3.5-5.1); Sodium 132 mmol/L (136-145)
--- NOTE | 2021-12-31 06:54 | PC.NURSE ---
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 Emptied dark curtis and strong smell.
[2021-12-31] MEDS: pantoprazole DR 40 mg Tablet PO (08:42)
[2021-12-31] MEDS: docusate sodium 100 mg Capsule PO (08:42)
[2021-12-31 08:43] VITALS: RESP 20
[2021-12-31] MEDS: oxyCODONE 5 mg IR Tab/Cap PO ×2 (08:43→13:04)
[2021-12-31] MEDS: calcium carbonate 500 mg Chew Tablet 1000 MG PO (08:47)
[2021-12-31] MEDS: ezetimibe 10 mg Tablet PO (08:48)
[2021-12-31] MEDS: levothyroxine 100 mcg Tablet PO (08:48)
[2021-12-31] MEDS: buPROPion SR (12 HR) 100 mg Tablet 150 MG PO (08:49)
[2021-12-31] MEDS: cyclobenzaprine 10 mg Tablet PO (08:49)
[2021-12-31] MEDS: aspirin 325 mg EC Tablet PO (08:50)
[2021-12-31] MEDS: lisinopril 20 mg Tablet PO (08:51)
[2021-12-31] MEDS: iron polysaccharide complex 150 mg Capsule PO (08:59)
[2021-12-31 13:04] VITALS: RESP 18
--- NOTE | 2021-12-31 13:23 | P.DS_ITS ---
Discharge Providers Date of Admission: 12/30/21 13:38 Date of Discharge: December 31, 2021 Attending Provider at Admission: Wendy Heard MD Attending Provider at Discharge: Wendy Heard MD Primary Care Provider: Keya Hyde DO Diagnoses at Discharge Discharge Diagnosis (1) Primary localized osteoarthritis of right knee: Status: Acute (2) Status post total right knee replacement not using cement: Status: Acute Permanent problem details: Date of procedure: December 30, 2021 Diagnosis: Primary osteoarthritis right knee with slight flexion contracture Procedure done: Manan assisted right total knee arthroplasty Implants: The [employer] total knee system with a size 4 triathlon beaded cruciate retaining femur right, a triathlon titanium tibial component size 4 beaded, a triathlon X3 tibial bearing CS insert size 4 X 9 mm and a beaded triathlon titanium asymmetric patella size 32 x 10 mm Reason for Visit Reason for Visit: M17.11 Unilateral Primary Osteoarthritis, right kn Brief History: Myranda is a 71-year-old woman who presented to my office with bilateral knee issues.? She has previously been seen and evaluated for a left total knee arthroplasty placed elsewhere.? She presented with complaints of significant right knee pain.? After evaluation and discussion, she wished to proceed with right total knee arthroplasty.? The patient had a cortisone injection on 09/18/21. Patient explains she only had relief for about a day with the cortisone injection. She states she has been active in physical therapy. She rates her pain a 8/10. She explains walking and activity makes her pain worse.? All activities of daily living are quite uncomfortable for her.? She has not found any comfort from therapy or injections. She reports stiffness and swelling.? At this point, with failure of nonoperative measures, the patient wishes to proceed to right total knee arthroplasty.? Risks and complications have been discussed with her. Hospital Course Hospital Course This 71-year-old woman was admitted for same-day surgery in the form of right total knee arthroplasty. She had previously undergone left total knee arthroplasty elsewhere. She was admitted overnight for observation and physical therapy. This was well-tolerated. The patient was able to straight leg raise. She was comfortable and managed on oral pain medications. Physical Exam Const: COMMON NORMALS: no acute distress, average body habitus, patient oriented x3 and alert GENERAL APPEARANCE: cooperative and comfortable ORIENTATION/CONSCIOUSNESS: Yes awake HENMT: COMMON NORMALS: normocephalic and atraumatic HEAD & SCALP: normocephalic and atraumatic Eye: GENERAL EYE: appearance normal, both eyes and all related structures Chest: COMMONS NORMALS: normal inspection of the chest Resp: COMMON NORMALS: normal respiratory effort EFFORT & INSPECTION: Yes able to speak in complete sentences and Yes symmetric chest movement Extremity: RIGHT LOWER EXTREMITY: Yes knee joint (Dressing is removed down to the OpSite.) Right knee: Yes inspection (Minimal bruising), Yes palpation (No tenderness to palpation), Yes ROM (Not evaluated.), Yes neurovascular exam (Intact.) and Yes other (Able to straight leg raise.) Neuro: COMMON NORMALS: patient oriented x3 SENSORIUM/ORIENTATION: Yes alert Psych: COMMON NORMALS: mental status grossly normal APPEARANCE: Yes grossly normal ATTITUDE: Yes calm and Yes engaged ATTENTION/CONCENTRATION: Yes attention grossly intact Skin: COMMON NORMALS: no rashes or lesions noted GENERAL SKIN EXAM: no rashes or lesions noted Urinary Catheter Management: Zhang: Cath Placed During This Visit: yes, but has since been removed by the nurse Reason for Continuing Indwelling Catheter: Decision to DC Catheter Urinary Catheter Date of Insertion: 12/30/21 Urinary Catheter Time of Insertion: 07:20 Date Urinary Catheter Removed: 12/31/21 Time Urinary Catheter Discontinued: 07:22 Discharge Data Studies Completed and Pending Completed Studies During Hospitalization Category Date Time Status XR knee LT 1-2V 45949 Urgent Exams 12/30/21 10:54 Completed Radiology Impressions Knee X-Ray 12/30/21 10:54 IMPRESSION: Normal appearing right total knee arthroplasty. Laboratory Results WBC 6.6 10^3/uL (4.0-10.0) 12/31/21 05:24 RBC 3.79 10^6/uL (4.1-5.3) L 12/31/21 05:24 Hgb 11.3 g/dL (11.5-15.3) L 12/31/21 05:24 Hct 34.4 % (37.0-47.0) L 12/31/21 05:24 MCV 90.8 fl (81-99) 12/31/21 05:24 MCH 29.8 pg (28.0-34.0) 12/31/21 05:24 MCHC 32.8 g/dL (30.0-36.0) 12/31/21 05:24 RDW 14.1 % (12.1-15.1) 12/31/21 05:24 Plt Count 158 10^3/cmm (130-400) 12/31/21 05:24 MPV 9.3 fL (7.4-10.4) 12/31/21 05:24 Neut % (Auto) 77.3 % 12/31/21 05:24 Lymph % (Auto) 9.6 % 12/31/21 05:24 [place] % (Auto) 9.9 % 12/31/21 05:24 Eos % (Auto) 2.3 % 12/31/21 05:24 Baso % (Auto) 0.6 % 12/31/21 05:24 Neut # (Auto) 5.07 10^3/uL (1.8-7.7) 12/31/21 05:24 Lymph # (Auto) 0.6 10^3/uL (0.8-4.8) L 12/31/21 05:24 [place] # (Auto) 0.7 10^3/uL (0.2-0.9) 12/31/21 05:24 Eos # (Auto) 0.2 10^3/uL (0.0-0.8) 12/31/21 05:24 Baso # (Auto) 0.0 10^3/uL (0.0-0.1) 12/31/21 05:24 Nucleated RBC % (auto) 0 % 12/31/21 05:24 Nucleated RBCs # 0.0 /100WBC 12/31/21 05:24 Sodium 132 mmol/L (136-145) L 12/31/21 05:24 Potassium 4.4 mmol/L (3.5-5.1) 12/31/21 05:24 Chloride 101 mmol/L (98-107) 12/31/21 05:24 Carbon Dioxide 23 mmol/L (22-29) 12/31/21 05:24 Anion Gap 12.4 (5-19) 12/31/21 05:24 BUN 14 mg/dL (8-23) 12/31/21 05:24 Creatinine 0.8 mg/dL (0.5-0.9) 12/31/21 05:24 GFR Calculation 71.1 mL/min (90-130) L 12/31/21 05:24 Glucose 140 mg/dL (65-115) H 12/31/21 05:24 Calculated Osmolality 277 mOsm/kg (285-295) L 12/31/21 05:24 Calcium 8.4 mg/dL (8.5-10.5) L 12/31/21 05:24 Urine Color Yellow (Yellow) 12/23/21 10:05 Urine Appearance Clear (CLEAR) 12/23/21 10:05 Urine pH 7 (5-7) 12/23/21 10:05 Ur Specific [place] 1.015 (1.005-1.030) 12/23/21 10:05 Urine Protein Trace (Negative) 12/23/21 10:05 Urine Glucose (UA) Norm (Normal) 12/23/21 10:05 Urine Ketones Negative (Negative) 12/23/21 10:05 Urine Blood Neg (Negative) 12/23/21 10:05 Urine Nitrate Positive (Negative) H 12/23/21 10:05 Urine Bilirubin Neg (Negative) 12/23/21 10:05 Urine Urobilinogen Norm mg/dL (Negative) 12/23/21 10:05 Ur Leukocyte Esterase Negative (Negative) 12/23/21 10:05 Urine RBC None /hpf (0-2) 12/23/21 10:05 Urine WBC 0-4 /hpf (0-5) H 12/23/21 10:05 Ur Squamous Epith Cells None /hpf (0-5) 12/23/21 10:05 Amorphous Sediment Not Reportable 12/23/21 10:05 Urine Bacteria None /hpf (NONE) 12/23/21 10:05 Vitals Last Vital Signs Temp 98.2 F 12/31/21 04:00 Pulse 68 12/31/21 04:00 Resp 18 12/31/21 13:04 BP 174/74 12/31/21 04:00 Pulse Ox 97 12/31/21 04:00 O2 Del Method 12/31/21 04:00 Discharge Plan Discharge Patient Disposition: Home Condition: Stable Prescriptions: New oxycodone 5 mg Tablet 5 mg PO Q4H PRN (Reason: Moderate Pain) 7 Days Qty: 30 0RF acetaminophen 500 mg Tablet 1,000 mg PO Q8H 15 Days Qty: 90 0RF aspirin 325 mg Tablet,Delayed Release (Dr/Ec) 325 mg PO DAILY Qty: 30 0RF celecoxib 200 mg Capsule 200 mg PO Q12H Qty: 60 0RF Continued lisinopril 20 mg tablet 20 mg PO DAILY One Daily Calcium/Iron Tablet 1 tab PO DAILY docusate sodium [Dulcolax Stool Softener (dss)] 100 mg capsule 100 mg PO DAILY levothyroxine 125 mcg capsule 100 mcg PO DAILY pantoprazole 40 mg tablet,delayed release (DR/EC) 40 mg PO DAILY (DME) Custom Sole Supports See Rx Instructions .Route .MEDSUPPLY Qty: 1 0RF Rx Instructions: As directed clobetasol 0.05 % cream 1 applic topical DAILY fexofenadine [Allergy Relief (fexofenadine)] 180 mg tablet 180 mg PO DAILY valacyclovir [Valtrex] 500 mg tablet 500 mg PO DAILY ibuprofen [IBU-200] 200 mg tablet 200 mg PO Q6H PRN (Reason: Pain) azelastine 137 mcg (0.1 %) aerosol,spray 2 spray intranasal BID Rx Instructions: administer into each nostril alprazolam 0.25 mg Tablet 0.25 mg PO TID PRN (Reason: Anxiety) biotin 1 mg Capsule 1 mg PO DAILY magnesium citrate 125 mg Capsule 500 mg PO DAILY Zyrtec 10 mg capsule 20 mg PO DAILY nitroglycerin 0.4 mg tablet, sublingual 0.4 mg sublingual PRN PRN (Reason: Angina) tizanidine 2 mg tablet 4 mg PO DAILY bupropion HCl 100 mg tablet sustained-release 12 hr 150 mg PO BID ezetimibe 10 mg tablet 10 mg PO DAILY levomefolate calcium [L-Methylfolate] 15 mg Tablet 15 mg PO DAILY cyclobenzaprine 10 mg tablet 10 mg PO BID Discharge Orders: Discharge Order (Routine); Ordered 12/31/21 Ordered By: Wendy Jain Ambulatory Orders: Physical Therapy Eval and Treat Outpatient (Order) Timeframe: 3 Days Facility: [facility] - Location: Physical Therapy Ordered By: Wendy Heard Referrals: [facility] [Other] (I have faxed the order and information to them. They are supposed to call you and set up time to start therapy.) Wendy Heard MD [Physician] - 01/14/22 9:45 am (This appointment will be with John, our nurse practitioner. You will follow-up with me the following visit.) Discharge Diet: Advance as tolerated and Usual diet Discharge Activity: Increase activity as tolerated, Limit activity as instructe d, Use walker/crutches as instructed and As per PT/OT instructions Patient Instructions: Oxycodone/Acetaminophen (By mouth), Aspirin (By mouth), Celecoxib (By mouth), Knee Replacement (GEN), Opioid Safety Activity Restrictions/Additional Instructions: May weight-bear as tolerated. Physical therapy will instruct in gait training, range of motion, and strengthening. Ice and elevation. Maintain dressing until it comes off on its own or is removed at the clinic. 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
[2021-12-31 16:19] VITALS: RESP 18
== END 2021-12-31 14:20 | disposition home or self-care (01) ==
LOC: MEDSURG 13:38
PROVIDERS: Admitting Provider Specialist; PCP Family Medicine; Visit Provider Specialist
PROC: 8E0Y0CZ Robotic Assisted Procedure of Lower Extremity, Open Approach (ICD-10-PCS; CPT 27447; principal; 2021-12-30 07:00)
DX: M17.11 Unilateral primary osteoarthritis, right knee (principal); I25.10 Atherosclerotic heart disease of native coronary artery without angina pectoris; Z95.5 Presence of coronary angioplasty implant and graft; I10 Essential (primary) hypertension; E66.01 Morbid (severe) obesity due to excess calories; Z68.37 Body mass index [BMI] 37.0-37.9, adult; Z86.73 Personal history of transient ischemic attack (TIA), and cerebral infarction without residual deficits; E78.5 Hyperlipidemia, unspecified; E66.9 Obesity, unspecified; Z87.891 Personal history of nicotine dependence
CPT/HCPCS: 27447; 36415; 51702; 73560; 80048; 81001; 85025; 97110; 97116; 97161; 97165; 97530; C1776; C9290; G0378; J0131; J0690; J2250; J2704; J2795; J3370; J3490; J7030; J7050

== ENCOUNTER 2022-01-13 06:00 | Outpatient (RCR) | payer MEDICARE, SELFPAY | END 2022-01-21 23:59 | disposition home or self-care (01) | LOC: MPT 06:00 | PROVIDERS: PCP Family Medicine; Visit Provider Specialist | DX: Z47.89 Encounter for other orthopedic aftercare (principal) | CPT/HCPCS: 97110; 97161 ==

== ENCOUNTER → 2022-01-14 09:35 | Outpatient (BNVA) | payer MEDICARE, SELFPAY | PROVIDERS: PCP Family Medicine; Visit Provider Nurse Practitioner Family | DX: Z96.651 Presence of right artificial knee joint (principal) | CPT/HCPCS: 73560; 73565; 99024 ==

== ENCOUNTER 2022-01-22 06:00 | Outpatient (RCR) | payer MEDICARE, SELFPAY | END 2022-02-21 23:59 | disposition home or self-care (01) | LOC: MPT 06:00 | PROVIDERS: PCP Family Medicine; Visit Provider Specialist | DX: Z96.651 Presence of right artificial knee joint (principal) | CPT/HCPCS: 97110 ==

== ENCOUNTER → 2022-02-04 13:34 | Outpatient (BNVA) | payer MEDICARE, SELFPAY | PROVIDERS: PCP Family Medicine; Visit Provider Specialist | DX: Z96.651 Presence of right artificial knee joint (principal); M79.661 Pain in right lower leg | CPT/HCPCS: 73560; 73565; 99024 ==

== ENCOUNTER → 2022-04-08 10:58 | Outpatient (BNVA) | payer MEDICARE, SELFPAY | PROVIDERS: PCP Family Medicine; Visit Provider Specialist | DX: Z96.651 Presence of right artificial knee joint (principal); M17.12 Unilateral primary osteoarthritis, left knee | CPT/HCPCS: 73560; 73565; 99213 ==

== ENCOUNTER → 2022-05-09 12:24 | Outpatient (BNVA) | payer MEDICARE, SELFPAY | PROVIDERS: PCP Family Medicine; Visit Provider Nurse Practitioner Family | DX: N39.0 Urinary tract infection, site not specified (principal); R31.9 Hematuria, unspecified | CPT/HCPCS: 81000; 87077; 87086; 87184 ==

== ENCOUNTER → 2022-08-12 11:20 | Outpatient (BNVA) | payer MEDICARE, SELFPAY | PROVIDERS: Referring Provider Nurse Practitioner Family; Visit Provider Nurse Practitioner Family | DX: N39.0 Urinary tract infection, site not specified (principal) | CPT/HCPCS: 81000 ==

== ENCOUNTER 2022-08-26 12:24 | Outpatient (RCR) | payer MEDICARE, SELFPAY | END 2022-09-21 23:59 | disposition home or self-care (01) | LOC: SPT 12:24 | PROVIDERS: PCP Family Medicine; Visit Provider Psychiatry & Neurology Neurology | DX: R42 Dizziness and giddiness (principal) | CPT/HCPCS: 95992; 97161 ==

== ENCOUNTER → 2022-09-07 11:19 | Outpatient (BNVA) | payer MEDICARE, SELFPAY | PROVIDERS: PCP Family Medicine; Visit Provider Nurse Practitioner Family | DX: N39.0 Urinary tract infection, site not specified (principal) | CPT/HCPCS: 81000; 87077; 87086; 87184 ==

== ENCOUNTER → 2022-09-16 15:58 | Outpatient (BNVA) | payer MEDICARE, SELFPAY | PROVIDERS: PCP Family Medicine; Visit Provider Specialist | DX: M25.562 Pain in left knee; G89.29 Other chronic pain; Z96.653 Presence of artificial knee joint, bilateral | CPT/HCPCS: 73560; 73565; 99213 ==

== ENCOUNTER 2022-09-22 08:24 | Outpatient (CLI) | payer MEDICARE, SELFPAY ==
--- NOTE | 2022-09-22 08:42 | NM_ITS ---
WS: [id number] THREE-PHASE BONE SCAN HISTORY: knee pain COMPARISON: 11/24/2021 three-phase bone scan and prior radiographs 09/16/2022 Patient is is injected with 25.4 mCi Tc99m HDP intravenously. Immediate angiographic phase imaging is performed over the area of concern. Static blood pool imaging also performed. Two-hour whole-body sc intigrams performed in anterior and posterior projections. Additional large field of view imaging sub mitted as necessary. Angiographic imaging and blood pool phase imaging is normal. There are photopenic defects related to the knee prostheses. On the two-hour delayed whole-body imaging there is mild to moderate increased uptake especially surr ounding the LEFT tibial prostheses. There is a long stem prosthesis with increased activity along babak rly the entire stent. Distal increased uptake in the lateral condylar component of the LEFT knee. Small amount of increased uptake along the RIGHT tibial plateau and in the femoral component. Finding s are very similar to the prior examination but no progression. There actually may be some improvemen t in the RIGHT knee prosthesis uptake. Mild AC joint and SC joint arthritis. Facet arthritis throughout the thoracic and lumbar spines with scoliosis. NM/NM bone 3 phase 48768 IMPRESSION: 1. No evidence for osteomyelitis. 2. Bilateral knee prostheses continue to show similar increased uptake as on t he prior study with questionable slight improvement. The most significant uptak e is along the tibial stem component of the LEFT knee prosthesis.
== END 2022-09-22 08:25 | disposition home or self-care (01) ==
PROVIDERS: Absent Provider Registered Nurse; PCP Family Medicine; Visit Provider Specialist
DX: M17.12 Unilateral primary osteoarthritis, left knee (principal); M86.9 Osteomyelitis, unspecified; Z96.653 Presence of artificial knee joint, bilateral
CPT/HCPCS: 78315; A9561

== ENCOUNTER → 2022-09-30 12:36 | Outpatient (BNVA) | payer MEDICARE, SELFPAY | PROVIDERS: PCP Family Medicine; Visit Provider Specialist | DX: Z96.652 Presence of left artificial knee joint (principal); M25.562 Pain in left knee; G89.29 Other chronic pain | CPT/HCPCS: 99213 ==

== ENCOUNTER → 2022-12-02 13:27 | Outpatient (BNVA) | payer MEDICARE, SELFPAY | PROVIDERS: PCP Family Medicine; Visit Provider Specialist | DX: M25.562 Pain in left knee (principal); G89.29 Other chronic pain; Z96.652 Presence of left artificial knee joint | CPT/HCPCS: 99213 ==

== ENCOUNTER → 2023-01-11 10:50 | Outpatient (BNVA) | payer OTHER, SELFPAY | PROVIDERS: PCP Family Medicine; Visit Provider Specialist | DX: Z96.651 Presence of right artificial knee joint (principal); M17.11 Unilateral primary osteoarthritis, right knee | CPT/HCPCS: 73560; 73565 ==

== ENCOUNTER → 2023-03-01 10:55 | Outpatient (BNVA) | payer OTHER, SELFPAY | PROVIDERS: PCP Family Medicine; Visit Provider Specialist | DX: M19.012 Primary osteoarthritis, left shoulder | CPT/HCPCS: 73030 ==

== ENCOUNTER → 2023-04-17 09:34 | Outpatient (BNVA) | payer OTHER, SELFPAY | PROVIDERS: PCP Family Medicine; Visit Provider Emergency Medicine | DX: J02.9 Acute pharyngitis, unspecified (principal) | CPT/HCPCS: 87880 ==

== ENCOUNTER → 2023-11-17 09:00 | Outpatient (BNVA) | payer OTHER, SELFPAY | PROVIDERS: PCP Family Medicine; Visit Provider Specialist | DX: Z96.653 Presence of artificial knee joint, bilateral (principal) | CPT/HCPCS: 73560; 73565 ==

== ENCOUNTER → 2023-12-11 11:50 | Outpatient (BNVA) | payer OTHER, SELFPAY | PROVIDERS: PCP Family Medicine; Visit Provider Emergency Medicine | DX: R30.0 Dysuria (principal) | CPT/HCPCS: 81000; 87086 ==

== ENCOUNTER 2024-01-13 08:02 | Outpatient (CLI) | payer OTHER, SELFPAY ==
--- NOTE | 2024-01-13 08:00 | NM_ITS ---
WS: [id number] NUCLEAR MEDICINE BONE SCAN THREE-PHASE Radiopharmaceutical: 25.2 Tc-99m MDP mCi IV Injection site: Antecubital Postinjection imaging delay: 2 hr CLINICAL INFORMATION: revision left total knee arthroplasty 2016 COMPARISON: 09/22/2022 FINDINGS: Normal blood flow and blood pool imaging. Photopenic defects corresponding to the bilateral knee prostheses. Increased periprosthesis uptake about the LEFT tibial longstem component tip has progressed compared to previous suspicious for loosening. No evidence of osteomyelitis. Improved uptake about the RIGHT knee prosthesis. Degenerative arthritis AC joints. Degenerative arthritis thoracic and lumbar spine with thoracic curv e. Soft tissue contours: Normal. Kidneys: Normal. Other findings: None. NM/NM bone 3 phase 91965 IMPRESSION: 1. No evidence of osteomyelitis 2. Persistent but improved periarticular uptake about the RIGHT knee prosthesi s compatible with normal bony remodeling 3. Increased uptake about the distal LEFT tibial stem at the tip suspicious fo r loosening of the tibial stem component 4. No other acute findings.
== END 2024-01-13 08:03 | disposition home or self-care (01) ==
LOC: RAD 08:02
PROVIDERS: PCP Family Medicine; Visit Provider Specialist
DX: Z96.652 Presence of left artificial knee joint (principal); R93.7 Abnormal findings on diagnostic imaging of other parts of musculoskeletal system
CPT/HCPCS: 78315; A9561

== ENCOUNTER → 2024-01-26 10:25 | Outpatient (BNVA) | payer OTHER, SELFPAY | PROVIDERS: PCP Family Medicine; Visit Provider Nurse Practitioner | DX: J02.9 Acute pharyngitis, unspecified (principal) | CPT/HCPCS: 87880 ==

== ENCOUNTER → 2024-09-06 08:36 | Outpatient (BNVA) | payer MEDICARE, SELFPAY | PROVIDERS: PCP Family Medicine; Visit Provider Specialist | DX: M19.012 Primary osteoarthritis, left shoulder (principal); M25.812 Other specified joint disorders, left shoulder; R07.89 Other chest pain | CPT/HCPCS: 20610; 73030; 99213; J1100; J2795; J3301; J9999 ==